=== PATIENT | male | born 1980 | race American Indian/Alaskan Native ===

== ENCOUNTER 2019-12-26 00:45 | Inpatient (IN) | payer OTHER ==
[2019-12-26] MEDS ORDERED: HYDROmorphone 1 MG/1 ML INJ IV ONE (01:10)
[2019-12-26] MEDS ORDERED: ONDANSETRON 4 MG/2 ML INJ IV ONE (01:10)
[2019-12-26] MEDS ORDERED: SODIUM CHLORIDE 0.9% 1000 ML 1,000 ML IV ONE ×2 (01:10→03:49)
--- NOTE | 2019-12-26 01:10 | Emergency Department Report ---
ED Abdominal Pain HPI - General Chief Complaint: Abdominal Pain Stated Complaint: NAUSEA/VOMITING PUI?: No Time Seen by Provider: 12/26/19 01:09 Source: EMS Mode of arrival: Stretcher Limitations: No Limitations - History of Present Illness Initial Comments: Patient is a 39-year-old male that presents emergency room with complaints of abdominal pain, nausea, vomiting, diarrhea. Patient states that he has had multiple bouts of vomiting and multiple bouts of diarrhea. Patient states he is passing bright red blood per rectum. Patient states he is also vomiting blood. Patient states his abdominal pain is a 10 out of 10. Patient states that he feels dehydrated. Patient states his symptoms are worsening. Patient states his symptoms started 24 hours ago. Patient states he ate 5 cheeseburgers last night and developed nausea and vomiting earlier this morning. Patient states that his abdominal pain is generalized. Patient states he is abdominal pain is nonradiating. Patient denies fever and chills. Patient complains of dizziness at times after vomiting. Patient states his dizziness is better with rest. Patient states his dizziness is worse with vomiting and exertion. Patient denies recent travel. Patient denies recent international travel. Patient denies exposure to the novel coronavirus. Patient denies sick contacts. Patient denies fever and chills. Patient denies cough. Patient denies coming in contact with anybody with symptoms of the novel coronavirus. MD Complaint: abdominal pain -: Sudden Location: diffuse Radiation: none Migration to: no migration Severity: severe Severity scale (0 -10): 10 Quality: stabbing Consistency: constant Improves With: rest Worsens With: eating, bowel movement, vomiting, movement Associated Symptoms: nausea, vomiting, diarrhea, hematemesis, hematochezia. denies: fever, chills, constipation, dysuria, melena - Related Data Home Medications Medication Instructions Recorded Confirmed Last Taken No Known Home Medications [No 06/15/15 06/15/15 Unknown Reported Home Medications] Allergies Allergy/AdvReac Type Severity Reaction Status Date / Time azithromycin [From Zithromax] Allergy STOMACH Verified 06/15/15 13:11 AND TONGUE FALL ASLEEP/ ANXIETY ED Review of Systems ROS: Stated complaint: NAUSEA/VOMITING Other details as noted in HPI Constitutional: denies: chills, fever Eyes: denies: eye pain, eye discharge, vision change ENT: denies: ear pain, throat pain Respiratory: denies: cough, shortness of breath, wheezing Cardiovascular: denies: chest pain, palpitations Endocrine: no symptoms reported Gastrointestinal: abdominal pain, nausea, vomiting, diarrhea, hematemesis, hematochezia Genitourinary: denies: urgency, dysuria Musculoskeletal: denies: back pain, joint swelling, arthralgia Skin: denies: rash, lesions Neurological: as per HPI. denies: headache, weakness, paresthesias Psychiatric: denies: anxiety, depression Hematological/Lymphatic: denies: easy bleeding, easy bruising ED Past Medical Hx - Past Medical History Previous Medical History?: No Additional medical history: bronchitis - Surgical History Past Surgical History?: No - Family History Family history: no significant - Social History Smoking Status: Never Smoker Substance Use Type: None - Medications Home Medications: Home Medications Medication Instructions Recorded Confirmed Last Taken Type No Known Home Medications [No 06/15/15 06/15/15 Unknown History Reported Home Medications] ED Physical Exam - General Limitations: No Limitations General appearance: alert, in no apparent distress - Head Head exam: Present: atraumatic, normocephalic - Eye Eye exam: Present: normal appearance - ENT ENT exam: Present: mucous membranes dry - Neck Neck exam: Present: normal inspection - Respiratory Respiratory exam: Present: normal lung sounds bilaterally. Absent: respiratory distress - Cardiovascular Cardiovascular Exam: Present: regular rate, normal rhythm. Absent: systolic murmur, diastolic murmur, rubs, gallop - GI/Abdominal GI/Abdominal exam: Present: soft, tenderness, normal bowel sounds. Absent: distended, guarding - Rectal Rectal exam: Present: normal rectal tone, heme (+) stool, bloody stool, normal prostate - Extremities Exam Extremities exam: Present: normal inspection - Back Exam Back exam: Present: normal inspection - Neurological Exam Neurological exam: Present: alert, oriented X3 - Psychiatric Psychiatric exam: Present: normal affect, normal mood - Skin Skin exam: Present: warm, dry, intact, normal color. Absent: rash ED Course Vital Signs 12/26/19 12/26/19 12/26/19 00:51 01:27 01:31 Temperature 97.9 F Pulse Rate 98 H 99 H 103 H Respiratory 13 13 9 L Rate Blood Pressure 111/75 Blood Pressure 93/66 [Left] O2 Sat by Pulse 100 98 97 Oximetry - Reevaluation(s) Reevaluation #1: Patient states he is feeling better. I discussed all results with patient. I discussed plan of care with patient. Patient agrees with plan of care and admission. Patient to be admitted to the hospitalist service. 12/26/19 03:51 - Consultations Consultation #1: Hospitalist consulted for admission. Hospitalist to admit patient. 12/26/19 03:50 Consultation #2: GI paged 12/26/19 03:51 I discussed the case with Dr. Paez GI. Dr. Paez recommends admission, n.p.o. after midnight and a dose of Protonix. 12/26/19 03:58 ED Medical Decision Making - Lab Data Result diagrams: 12/26/19 01:29 12/26/19 03:00 - Radiology Data Radiology results: report reviewed CT ABDOMEN AND PELVIS WITH IV CONTRAST INDICATION: Patient complains of abd pain with nausea, vomiting and diarrhea. COMPARISON: None available. TECHNIQUE: Axial CT images were obtained through the abdomen and pelvis after IV contrast. All CT scans at this location are performed using CT dose reduction for ALARA by means of automated exposure control. FINDINGS -- ABDOMEN: Lung Bases: No acute abnormality. Liver: Normal. Gallbladder: Normal. Bile Ducts: Normal. Pancreas: Normal. Spleen: Normal. Adrenals: Normal. Right Kidney and Proximal Ureter: Normal. Left Kidney and Proximal Ureter: Normal. Stomach and Bowel: Normal. Lymph Nodes: No significant adenopathy. Aorta: No significant abnormality. IVC: Normal. Additional Findings: None. FINDINGS -- PELVIS: Urinary Bladder and Distal Ureters: Normal. Reproductive Organs: No acute abnormality. Appendix: Not well identified and cannot be assessed.. Bowel: No acute abnormality. Free Fluid: None. Lymph Nodes: No significant adenopathy. Additional Findings: None. Skeletal System: No acute abnormality. IMPRESSION: Mild diffuse colitis, possibly infectious - Medical Decision Making Patient is a 39-year-old male that presents emergency room with nausea, vomiting, diarrhea, vomiting blood, bright red blood per rectum. Patient's symptoms started after eating 5 hamburgers. Patient given fluids, Dilaudid and Zofran as symptoms improved. Patient had a CT scan which shows infectious colitis. Patient was given Zosyn early in the ER visit. Patient admitted to the hospital service for further evaluation treatment. Patient had a positive guaiac and GI was consulted. GI recommendations received. - Differential Diagnosis Colitis, abdominal pain, vomiting blood, diarrhea, N/V, gastroenteritis Critical Care Time: Yes Critical care time in (mins) excluding proc time.: 35 Critical care attestation.: If time is entered above; I have spent that time in minutes in the direct care of this critically ill patient, excluding procedure time. Critical Care Time: 35 minutes ED Disposition Clinical Impression: Dizziness, Colitis, BRBPR (bright red blood per rectum) Nausea & vomiting Qualifiers: Vomiting type: unspecified Vomiting Intractability: intractable Qualified Code(s): R11.2 - Nausea with vomiting, unspecified Hematemesis Qualifiers: Nausea presence: with nausea Qualified Code(s): K92.0 - Hematemesis GI bleed Qualifiers: GI bleed type/associated pathology: unspecified gastrointestinal hemorrhage type Qualified Code(s): K92.2 - Gastrointestinal hemorrhage, unspecified Diarrhea Qualifiers: Diarrhea type: infectious Qualified Code(s): A09 - Infectious gastroenteritis and colitis, unspecified Disposition: DC-09 OP ADMIT IP TO THIS HOSP Is pt being admited?: Yes Does the pt Need Aspirin: No Condition: Critical Time of Disposition: 04:01
[2019-12-26] MEDS ORDERED: SODIUM CHLORIDE 0.9% 1000 ML IV SOLN IV ONE (01:31)
[2019-12-26] MEDS ORDERED: PIPERACIL/TAZOBACTA 4.5/NS 100 4.5 GM/100 ML VIAL IV ONE (01:32)
[2019-12-26 01:56] LABS: Basophils % (Auto) 0.3 % (0.0-1.8); Hematocrit 40.6 % (35.5-45.6); Hemoglobin 14.4 gm/dl (11.8-15.2); Lymphocytes # (Auto) 0.4 K/mm3 (1.2-5.4); Lymphocytes % (Auto) 8.2 % (13.4-35.0); Mean Corpuscular HGB Conc 36 % (32-34); Mean Corpuscular Volume 85 fl (84-94); Monocytes # (Auto) 0.6 K/mm3 (0.0-0.8); Monocytes % (Auto) 13.3 % (0.0-7.3); Platelet Count 200 K/mm3 (140-440); Red Blood Count 4.76 M/mm3 (3.65-5.03); Red Cell Distribution Width 13.2 % (13.2-15.2)
[2019-12-26 02:19] LABS: Alanine Aminotransferase 18 units/L (7-56); Albumin 3.9 g/dL (3.9-5); BUN/Creatinine Ratio 15; Bilirubin,Direct 0.2 mg/dL (0-0.2); Blood Urea Nitrogen 18 mg/dL (9-20); Calcium 8.5 mg/dL (8.4-10.2); Hemolysis Index 13
--- NOTE | 2019-12-26 03:14 | Cat Scan Report ---
CT head without contrast INDICATION : Dizziness altered mental status. TECHNIQUE: Axial imaging performed from the skull apex through the skull base without the use of con trast. All CT examinations performed at this facility utilize dose modulation, iterative reconstruct ion or weight-based dosing, when appropriate, to reduce radiation dose to as low as reasonably achiev able. COMPARISON: None FINDINGS: No acute intracranial hemorrhage or parenchymal abnormality. Ventricles are normal in si ze and appear symmetric. Soft tissues including the orbits appear normal. No acute osseous abnorm ality. Sinuses and mastoid air cells are clear. IMPRESSION: No acute abnormality. Signer Name: Prosper Nguyen MD Signed: 12/26/2019 3:09 AM Workstation Name: [id number]
--- NOTE | 2019-12-26 03:15 | Cat Scan Report ---
CT ABDOMEN AND PELVIS WITH IV CONTRAST INDICATION: Patient complains of abd pain with nausea, vomiting and diarrhea. COMPARISON: None available. TECHNIQUE: Axial CT images were obtained through the abdomen and pelvis after IV contrast. All CT scans at this location are performed using CT dose reduction for ALARA by means of automated exposure control. FINDINGS -- ABDOMEN: Lung Bases: No acute abnormality. Liver: Normal. Gallbladder: Normal. Bile Ducts: Normal. Pancreas: Normal. Spleen: Normal. Adrenals: Normal. Right Kidney and Proximal Ureter: Normal. Left Kidney and Proximal Ureter: Normal. Stomach and Bowel: Normal. Lymph Nodes: No significant adenopathy. Aorta: No significant abnormality. IVC: Normal. Additional Findings: None. FINDINGS -- PELVIS: Urinary Bladder and Distal Ureters: Normal. Reproductive Organs: No acute abnormality. Appendix: Not well identified and cannot be assessed.. Bowel: No acute abnormality. Free Fluid: None. Lymph Nodes: No significant adenopathy. Additional Findings: None. Skeletal System: No acute abnormality. IMPRESSION: Mild diffuse colitis, possibly infectious Signer Name: Propser Nguyen MD Signed: 12/26/2019 3:11 AM Workstation Name: [id number]
[2019-12-26 03:31] LABS: Alanine Aminotransferase 16 units/L (7-56); Albumin 3.8 g/dL (3.9-5); BUN/Creatinine Ratio 15; Blood Urea Nitrogen 17 mg/dL (9-20); Calcium 7.8 mg/dL (8.4-10.2); Hemolysis Index 5
[2019-12-26] MEDS ORDERED: PANTOPRAZOLE 40 MG INJ IV ONE (03:58)
[2019-12-26 04:34] LABS: Bacteria,Urine 1+ /HPF (Negative); Bilirubin,Urine NEG (Negative); Blood,Urine SM (Negative); Color,Urine Straw (Yellow); Protein,Urine <15 mg/dL mg/dL (Negative); Urobilinogen,Urine < 2.0 mg/dL (<2.0)
[2019-12-26] MEDS ORDERED: MORPHINE 2 MG/1 ML INJ IV PRN (04:51)
[2019-12-26] MEDS ORDERED: ACETAMINOPHEN 325 MG TAB PO PRN (04:51)
--- NOTE | 2019-12-26 05:02 | History and Physical Report ---
History of Present Illness Date of examination: 12/26/19 Date of admission: 12/26/19 04:02 Chief complaint: Nausea, vomiting, diarrhea and abdominal pain History of present illness: Patient is a 39-year-old male with no known past medical conditions and not on any medication presents with complaints of recurrent vomiting, diarrhea, generalized abdominal pain and body aches since last night. He also complains of feeling hot and cold, fever and chills. States that he had at least 10 episodes of emesis and 10-13 episodes of loose bowel movements. Symptoms st arted after he ate about 5 cheeseburgers and then went to sleep and woke up after an hour with worsening abdominal pain followed by vomiting and diarrhea. CT of the abdomen revealed diffuse colitis and patient is being admitted for further management Patient complains of dizziness at times after vomiting. Patient states his dizziness is better with rest. Patient states his dizziness is worse with vomiting and exertion. Patient denies recent travel. Patient denies exposure to the novel coronavirus Past History Past Medical History: No medical history Past Surgical History: Other (Left foot surgery) Social history: no significant social history. denies: smoking, alcohol abuse Family history: hypertension (in mother) Medications and Allergies Allergies Allergy/AdvReac Type Severity Reaction Status Date / Time azithromycin [From Zithromax] Allergy STOMACH Verified 06/15/15 13:11 AND TONGUE FALL ASLEEP/ ANXIETY Home Medications Medication Instructions Recorded Confirmed Last Taken Type No Known Home Medications [No 06/15/15 06/15/15 Unknown History Reported Home Medications] Active Meds: Active Medications Acetaminophen (Tylenol) 650 mg PO Q4H PRN PRN Reason: Pain MILD(1-3)/Fever >100.5/VICK Sodium Chloride (Nacl 0.9% 1000 Ml) 1,000 mls @ 125 mls/hr IV DIRECT PRATIK Metronidazole (Flagyl 500 Mg/100 Ml) 500 mg in 100 mls @ 100 mls/hr IV Q8HR PRATIK; Protocol Levofloxacin/Dextrose (Levaquin 500mg/100ml) 500 mg in 100 mls @ 100 mls/hr IV Q24HR PRATIK; Protocol Morphine Sulfate (Morphine) 2 mg IV Q4H PRN PRN Reason: Pain, Moderate (4-6) Ondansetron HCl (Zofran) 4 mg IV Q8H PRN PRN Reason: Nausea And Vomiting Pantoprazole Sodium (Protonix) 40 mg IV QDAY PRATIK Sodium Chloride (Sodium Chloride Flush Syringe 10 Ml) 10 ml IV BID PRATIK Sodium Chloride (Sodium Chloride Flush Syringe 10 Ml) 10 ml IV PRN PRN PRN Reason: LINE FLUSH Review of Systems Constitutional: fever, chills, weakness, no weight loss, no weight gain Ears, nose, mouth and throat: no ear pain, no hoarseness, no headache, no vertigo Cardiovascular: no chest pain, no orthopnea, no palpitations, no syncope, no high blood pressure Respiratory: no cough Gastrointestinal: abdominal pain, nausea, vomiting, diarrhea, hematemesis, melena, hematochezia Genitourinary Male: no dysuria, no urinary frequency Rectal: bleeding, no pain Musculoskeletal: no neck pain Integumentary: rash Neurological: no seizures, no syncope, no vertigo Psychiatric: no anxiety, no depression Exam - Constitutional Vitals: Temp Pulse Resp BP Pulse Ox 97.9 F 103 H 9 L 111/75 97 12/26/19 00:51 12/26/19 01:31 12/26/19 01:31 12/26/19 01:31 12/26/19 01:31 General appearance: Present: mild distress - EENT Eyes: Present: PERRL, EOM intact ENT: hearing intact, clear oral mucosa - Neck Neck: Present: supple, normal ROM. Absent: masses or JVD - Respiratory Respiratory effort: normal - Cardiovascular Rhythm: regular Heart Sounds: Present: S1 & S2 - Extremities Extremities: No edema Peripheral Pulses: within normal limits - Abdominal General gastrointestinal: Present: soft, tender (No guarding or rigidity), non- distended Male genitourinary: Present: deferred - Rectal Rectal Exam: deferred - Integumentary Integumentary: Present: clear, warm - Musculoskeletal Musculoskeletal: strength equal bilaterally - Psychiatric Psychiatric: appropriate mood/affect HEART Score - HEART Score Troponin: WBC 4.8 K/mm3 (4.5-11.0) 12/26/19 01:29 RBC 4.76 M/mm3 (3.65-5.03) 12/26/19 01:29 Hgb 14.4 gm/dl (11.8-15.2) 12/26/19 01:29 Hct 40.6 % (35.5-45.6) 12/26/19: MCV 85 fl (84-94) 12/26/19 01: MCH 30 pg (28-32) 12/26/19 01: MCHC 36 % (32-34) H 12/26/19 01: RDW 13.2 % (13.2-15.2) 12/26/19 01:29 Plt Count 200 K/mm3 (140-440) 12/26/19 01:29 Lymph % (Auto) 8.2 % (13.4-35.0) L 12/26/19 01: [place] % (Auto) 13.3 % (0.0-7.3) H 12/26/19 01: Eos % (Auto) 0.0 % (0.0-4.3) 12/26/19 01: Baso % (Auto) 0.3 % (0.0-1.8) 12/26/19 01: Lymph # (Auto) 0.4 K/mm3 (1.2-5.4) L 12/26/19 01: [place] # (Auto) 0.6 K/mm3 (0.0-0.8) 12/26/19 01: Eos # (Auto) 0.0 K/mm3 (0.0-0.4) 12/26/19 01: Baso # (Auto) 0.0 K/mm3 (0.0-0.1) 12/26/19 01: Seg Neutrophils % 78.2 % (40.0-70.0) H 12/26/19 01: Seg Neutrophils # 3.7 K/mm3 (1.8-7.7) 12/26/19 01:29 Sodium 132 mmol/L (137-145) L 12/26/19 03:00 Potassium 3.6 mmol/L (3.6-5.0) 12/26/19 03:00 Chloride 100.0 mmol/L (98-107) 12/26/19 03:00 Carbon Dioxide 18 mmol/L (22-30) L 12/26/19 03:00 Anion Gap 18 mmol/L 12/26/19 03:00 BUN 17 mg/dL (9-20) 12/26/19 03:00 Creatinine 1.1 mg/dL (0.8-1.3) 12/26/19 03:00 Estimated GFR > 60 ml/min 12/26/19 03:00 BUN/Creatinine Ratio 15 % 12/26/19 03:00 Glucose 141 mg/dL (75-100) H 12/26/19 03:00 Lactic Acid 1.70 mmol/L (0.7-2.0) 12/26/19 03:00 Calcium 7.8 mg/dL (8.4-10.2) L 12/26/19 03:00 Total Bilirubin 0.60 mg/dL (0.1-1.2) 12/26/19 03:00 Direct Bilirubin 0.2 mg/dL (0-0.2) 12/26/19 01:29 Indirect Bilirubin 0.7 mg/dL 12/26/19 01:29 AST 13 units/L (5-40) 12/26/19 03:00 ALT 16 units/L (7-56) 12/26/19 03:00 Alkaline Phosphatase 74 units/L (35-129) 12/26/19 03:00 Total Protein 6.2 g/dL (6.3-8.2) L 12/26/19 03:00 Albumin 3.8 g/dL (3.9-5) L 12/26/19 03:00 Albumin/Globulin Ratio 1.6 % 12/26/19 03:00 Lipase 16 units/L (13-60) 12/26/19 01:29 Urine Color Straw (Yellow) 12/26/19 03:19 Urine Turbidity Clear (Clear) 12/26/19 03:19 Urine pH 6.0 (5.0-7.0) 12/26/19 03:19 Ur Specific [place] 1.005 (1.003-1.030) 12/26/19 03:19 Urine Protein <15 mg/dl mg/dL (Negative) 12/26/19 03:19 Urine Glucose (UA) Neg mg/dL (Negative) 12/26/19 03:19 Urine Ketones Tr mg/dL (Negative) 12/26/19 03:19 Urine Blood Sm (Negative) 12/26/19 03:19 Urine Nitrite Neg (Negative) 12/26/19 03:19 Urine Bilirubin Neg (Negative) 12/26/19 03:19 Urine Urobilinogen < 2.0 mg/dL (<2.0) 12/26/19 03:19 Ur Leukocyte Esterase Neg (Negative) 12/26/19 03:19 Urine WBC (Auto) 1.0 /HPF (0.0-6.0) 12/26/19 03:19 Urine RBC (Auto) 0.0 /HPF (0.0-6.0) 12/26/19 03:19 Urine Bacteria (Auto) 1+ /HPF (Negative) 12/26/19 03:19 Results - Labs CBC & Chem 7: 12/26/19 01:29 12/26/19 03:00 Labs: Abnormal lab results 12/26/19 12/26/19 12/26/19 Range/Units 01:29 01:29 03:00 MCHC 36 H (32-34) % Lymph % (Auto) 8.2 L (13.4-35.0) % [place] % (Auto) 13.3 H (0.0-7.3) % Lymph # (Auto) 0.4 L (1.2-5.4) K/mm3 Seg Neutrophils % 78.2 H (40.0-70.0) % Sodium 133 L 132 L (137-145) mmol/L Potassium 3.4 L (3.6-5.0) mmol/L Carbon Dioxide 18 L 18 L (22-30) mmol/L Glucose 147 H 141 H (75-100) mg/dL Calcium 7.8 L (8.4-10.2) mg/dL Total Protein 6.2 L (6.3-8.2) g/dL Albumin 3.8 L (3.9-5) g/dL Assessment and Plan - Patient Problems (1) Hyponatremia Current Visit: Yes Status: Acute Plan to address problem: Mild Likely secondary to diarrhea Start on IV fluids with normal saline Monitor electrolytes No need for further hyponatremia work-up (2) Metabolic acidosis Current Visit: Yes Status: Acute Plan to address problem: Secondary to diarrhea Monitor labs IV fluids (3) Hyperglycemia Current Visit: Yes Status: Acute Plan to address problem: Patient denies history of diabetes diabetes Check A1c (4) Colitis Current Visit: Yes Status: Acute Plan to address problem: CT of the abdomen and pelvis results reviewed and it shows diffuse colitis Unclear etiology Rule out infectious versus food poisoning Symptoms started about an hour after he ate 5 cheeseburgers from [employer] Check stool for C. difficile Blood and stool cultures N.p.o. IV fluids Empiric IV antibiotics with Levaquin and Flagyl GI consulted by ED (5) Diarrhea Current Visit: Yes Status: Acute Qualifiers: Diarrhea type: infectious Qualified Code(s): A09 - Infectious gastroenteritis and colitis, unspecified (6) GI bleed Current Visit: Yes Status: Acute Qualifiers: GI bleed type/associated pathology: unspecified gastrointestinal hemorrhage type Qualified Code(s): K92.2 - Gastrointestinal hemorrhage, unspecified (7) Nausea & vomiting Current Visit: Yes Status: Acute Qualifiers: Vomiting type: unspecified Vomiting Intractability: intractable Qualified Code(s): R11.2 - Nausea with vomiting, unspecified
[2019-12-26] MEDS: ONDANSETRON 4 MG/2 ML INJ IV PRN ×2 (07:37→15:47)
[2019-12-26] MEDS: SODIUM CHLORIDE 0.9% 1000 ML 1,000 ML IV SCH (07:40)
[2019-12-26] MEDS: metroNIDAZOLE/NS 500 MG/100 ML 500 MG/100 ML BAG IV SCH ×3 (07:40→21:50)
--- NOTE | 2019-12-26 09:21 | Event Note ---
This is a 39 year old male with no medical history except of prior surgeries on his left foot from trauma several years ago who presented with n/v, hematemesis, diarrhea, generalized abd pain, generlaized body aches and hematochezia episodes at home CT of the abdomen revealed diffuse colitis and was started on levaquin, flagyl, IVF, made npo and a consult was placed to GI. Today on exam he states he is pain but is relatively clam with neutral facial expressions, normocephalic, atraumatic head, PERRL, hearing intact, B lung CTA without distress, his abd is stated to be tender but no tenderness noted on palpation, guarding or rigidity with hypoactive bowel sounds, voiding into a urinal, with no skin lesions noted. Patient states he is allergic to morphine however he states he can take Dilaudid and oxycodone without any problems. Morphine is said to cause tingling in his mouth and hypersalavation. He states " you can give me morphine but you will regret it, [facility] has my records, does my family need to come up here because my pain is not being treated". He also expressed dissatisfaction with the nurse and perceived delay in care. I changed his pain medication to 0.5 mg Dilaudid q 4 hours for 1 day. Patient also stated he wanted phenergan for his nausea instead of zofran but when presented with the [place] option since the patient is NPO and those are the routes which are displayed when I try to order, he declined the change. On admit he had hyponatreumia of 133, hypokalemia of 3.4, and his Cr was 1.2 (unknown baseline). Today he has hyponaturemia of 132, his K is 3.6, and Cr is 1.1. His LA also trended up to 2.2 from 1.7 but repeat is 2.0. We will continue to monitor and await GI input.
[2019-12-26] MEDS ORDERED: NALOXONE 0.4 MG/1 ML INJ IV PRN (09:30)
[2019-12-26] MEDS: HYDROmorphone 1 MG/1 ML INJ IV PRN ×2 (09:34→15:47)
[2019-12-26] MEDS: PANTOPRAZOLE 40 MG INJ IV SCH (09:35)
--- NOTE | 2019-12-26 21:11 | Consultation ---
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 He had eaten 5 [employer] cheeseburgers at 8PM on 12/23. He has had chills as well, and noted BRB mixed in emesis, as well as mixed with yellow-brown liquid stool. Pt usu has a BM 1-2x/d, no change. Had prior similar symptoms years ago with food poisoning. No weight loss. Meds reviewed. Past History Past Medical History: No medical history Past Surgical History: Other (Left foot surgery) Social history: no significant social history. denies: smoking, alcohol abuse Family history: hypertension (in mother) Medications and Allergies Allergies Allergy/AdvReac Type Severity Reaction Status Date / Time azithromycin [From Zithromax] Allergy STOMACH Verified 06/15/15 13:11 AND TONGUE FALL ASLEEP/ ANXIETY Home Medications Medication Instructions Recorded Confirmed Last Taken Type No Known Home Medications [No 06/15/15 06/15/15 Unknown History Reported Home Medications] Active Meds: Active Medications Acetaminophen (Tylenol) 650 mg PO Q4H PRN PRN Reason: Pain MILD(1-3)/Fever >100.5/VICK Hydromorphone HCl (Dilaudid) 0.5 mg IV Q6H PRN PRN Reason: Pain , Severe (7-10) Stop: 12/27/19 09:59 Last Admin: 12/26/19 15:47 Dose: 0.5 mg Documented by: Sodium Chloride (Nacl 0.9% 1000 Ml) 1,000 mls @ 125 mls/hr IV DIRECT PRATIK Last Admin: 12/26/19 07:40 Dose: 125 mls/hr Documented by: Metronidazole (Flagyl 500 Mg/100 Ml) 500 mg in 100 mls @ 100 mls/hr IV Q8HR PRATIK; Protocol Last Admin: 12/26/19 14:15 Dose: 100 mls/hr Documented by: Levofloxacin/Dextrose (Levaquin 500mg/100ml) 500 mg in 100 mls @ 100 mls/hr IV Q24HR PRATIK; Protocol Last Admin: 12/26/19 09:35 Dose: 100 mls/hr Documented by: Naloxone HCl (Naloxone) 0.1 mg IV Q2MIN PRN PRN Reason: Res Rate </= 8 or 02 SAT < 92% Ondansetron HCl (Zofran) 4 mg IV Q8H PRN PRN Reason: Nausea And Vomiting Last Admin: 12/26/19 15:47 Dose: 4 mg Documented by: Oxycodone/Acetaminophen (Percocet 5/325) 1 tab PO Q6H PRN PRN Reason: Pain, Moderate (4-6) Pantoprazole Sodium (Protonix) 40 mg IV QDAY [facility] Last Admin: 12/26/19 09:35 Dose: 40 mg Documented by: Sodium Chloride (Sodium Chloride Flush Syringe 10 Ml) 10 ml IV BID [facility] Last Admin: 12/26/19 09:41 Dose: Not Given Documented by: Sodium Chloride (Sodium Chloride Flush Syringe 10 Ml) 10 ml IV PRN PRN PRN Reason: LINE FLUSH Review of Systems All systems: negative (as per HPI) Exam - Constitutional Vitals: Temp Pulse Resp BP Pulse Ox 99.2 F 94 H 18 114/56 96 12/26/19 19:31 12/26/19 19:31 12/26/19 19:31 12/26/19 19:31 12/26/19 19:31 General appearance: Present: mild distress - EENT Eyes: Present: PERRL, EOM intact ENT: hearing intact - Respiratory Respiratory effort: normal Respiratory: bilateral: CTA - Cardiovascular Rhythm: regular Heart Sounds: Present: S1 & S2 - Abdominal General gastrointestinal: Present: soft, tender (mild, diffuse) Results - Labs CBC & Chem 7: 12/26/19 01:29 12/26/19 03:00 Labs: Abnormal lab results 12/26/19 12/26/19 12/26/19 Range/Units 01:29 01:29 03:00 MCHC 36 H (32-34) % Lymph % (Auto) 8.2 L (13.4-35.0) % [place] % (Auto) 13.3 H (0.0-7.3) % Lymph # (Auto) 0.4 L (1.2-5.4) K/mm3 Seg Neutrophils % 78.2 H (40.0-70.0) % Sodium 133 L 132 L (137-145) mmol/L Potassium 3.4 L (3.6-5.0) mmol/L Carbon Dioxide 18 L 18 L (22-30) mmol/L Glucose 147 H 141 H (75-100) mg/dL Lactic Acid (0.7-2.0) mmol/L Calcium 7.8 L (8.4-10.2) mg/dL Total Protein 6.2 L (6.3-8.2) g/dL Albumin 3.8 L (3.9-5) g/dL 12/26/19 Range/Units 07:07 MCHC (32-34) % Lymph % (Auto) (13.4-35.0) % [place] % (Auto) (0.0-7.3) % Lymph # (Auto) (1.2-5.4) K/mm3 Seg Neutrophils % (40.0-70.0) % Sodium (137-145) mmol/L Potassium (3.6-5.0) mmol/L Carbon Dioxide (22-30) mmol/L Glucose (75-100) mg/dL Lactic Acid 2.20 H* (0.7-2.0) mmol/L Calcium (8.4-10.2) mg/dL Total Protein (6.3-8.2) g/dL Albumin (3.9-5) g/dL Assessment and Plan 1. N/V/D - most c/w infectious process. - supportive care, IVFs - empiric abx - get stool studies
[2019-12-27] MEDS: HYDROmorphone 1 MG/1 ML INJ IV PRN (04:35)
[2019-12-27] MEDS: metroNIDAZOLE/NS 500 MG/100 ML 500 MG/100 ML BAG IV SCH ×3 (05:39→22:28)
[2019-12-27 06:40] LABS: Basophils % (Auto) 0.1 % (0.0-1.8); Eosinophils % (Auto) 0.3 % (0.0-4.3); Hematocrit 37.4 % (35.5-45.6); Lymphocytes # (Auto) 1.2 K/mm3 (1.2-5.4); Lymphocytes % (Auto) 16.5 % (13.4-35.0); Mean Corpuscular HGB Conc 35 % (32-34); Mean Corpuscular Volume 86 fl (84-94); Monocytes # (Auto) 0.7 K/mm3 (0.0-0.8); Monocytes % (Auto) 10.1 % (0.0-7.3); Platelet Count 189 K/mm3 (140-440); Red Blood Count 4.33 M/mm3 (3.65-5.03); Red Cell Distribution Width 13.4 % (13.2-15.2)
[2019-12-27 06:46] LABS: BUN/Creatinine Ratio 9; Blood Urea Nitrogen 9 mg/dL (9-20); Calcium 8.3 mg/dL (8.4-10.2); Hemolysis Index 13
[2019-12-27] MEDS: PANTOPRAZOLE 40 MG INJ IV SCH ×2 (08:43→10:03)
[2019-12-27] MEDS: oxyCODONE /ACETAMINOPHEN 5-325MG TAB PO PRN ×2 (10:08→22:31)
[2019-12-27] MEDS: ONDANSETRON 4 MG/2 ML INJ IV PRN (10:13)
--- NOTE | 2019-12-27 14:39 | Progress Note ---
Assessment and Plan 1. N/V/D - Improving. Most c/w infectious process, possibly related to food ingestion. Stool positive for WBC, cultures pending. - supportive care, IVFs - empiric abx - F/u stool studies - can give Levsin SL for pain/cramps, and cholestyramine for diarrhea Subjective Date of service: 12/27/19 Interval history: Pt has ongoing diarrhea, with cramping and vasovagal symptoms. Significantly improved and was able to sleep. Objective - Constitutional Vitals: Vital Signs - 12hr 12/27/19 08:32 Temperature 98.5 F Pulse Rate 78 Respiratory 19 Rate Blood Pressure 116/73 [Left] O2 Sat by Pulse 98 Oximetry General appearance: Present: no acute distress - EENT Eyes: PERRL, EOM intact ENT: hearing intact - Respiratory Respiratory effort: normal - Gastrointestinal General gastrointestinal: Present: soft, tender (Mild) - Labs CBC & Chem 7: 12/27/19 05:57 12/27/19 05:57 Labs: Abnormal lab results 12/27/19 12/27/19 Range/Units 05:57 05:57 MCHC 35 H (32-34) % [place] % (Auto) 10.1 H (0.0-7.3) % Seg Neutrophils % 73.0 H (40.0-70.0) % Calcium 8.3 L (8.4-10.2) mg/dL Medications & Allergies - Medications Allergies/Adverse Reactions: Allergies azithromycin [From Zithromax] Allergy (Verified 06/15/15 13:11) STOMACH AND TONGUE FALL ASLEEP/ ANXIETY Home Medications: Home Medications Medication Instructions Recorded Confirmed Last Taken Type No Known Home Medications [No 06/15/15 06/15/15 Unknown History Reported Home Medications] Active Medications: Generic Name Dose Route Start Last Admin Trade Name Freq PRN Reason Stop Dose Admin Acetaminophen 650 mg 12/26/19 04:51 Tylenol PO Q4H PRN Pain MILD(1-3)/Fever >100.5/VICK Sodium Chloride 1,000 mls @ 125 mls/hr 12/26/19 05:00 12/26/19 07:40 Nacl 0.9% 1000 Ml IV 125 mls/hr DIRECT PRATIK Administration Metronidazole 500 mg in 100 mls @ 100 mls/hr 12/26/19 06:00 12/27/19 13:44 Flagyl 500 Mg/100 Ml IV 100 mls/hr Q8HR PRATIK Administration Protocol Levofloxacin/Dextrose 500 mg in 100 mls @ 100 mls/hr 12/26/19 10:00 12/27/19 10:02 Levaquin 500mg/100ml IV 100 mls/hr Q24HR PRATIK Administration Protocol Naloxone HCl 0.1 mg 12/26/19 09:30 Naloxone IV Q2MIN PRN Res Rate </= 8 or 02 SAT < 92% Ondansetron HCl 4 mg 12/26/19 04:51 12/27/19 10:13 Zofran IV 4 mg Q8H PRN Administration Nausea And Vomiting Oxycodone/Acetaminophen 1 tab 12/26/19 10:00 12/27/19 10:08 Percocet 5/325 PO 1 tab Q6H PRN Administration Pain, Moderate (4-6) Pantoprazole Sodium 40 mg 12/26/19 10:00 12/27/19 10:03 Protonix IV Not Given QDAY PRATIK Sodium Chloride 10 ml 12/26/19 10:00 12/27/19 10:03 Sodium Chloride Flush Syringe 10 Ml IV Not Given BID PRATIK Sodium Chloride 10 ml 12/26/19 04:51 Sodium Chloride Flush Syringe 10 Ml IV PRN PRN LINE FLUSH
--- NOTE | 2019-12-27 14:52 | Progress Note ---
Assessment and Plan - Patient Problems (1) Colitis Current Visit: Yes Status: Acute Plan to address problem: Presented with diarrhea, nausea and vomiting 12/25 CT of the abdomen revealed diffuse colitis GI consulted Antibiotic therapy N.p.o. for now 12/25 stool studies pending but show WBCs Questran and Levbid started for symptom relief (2) Diarrhea Current Visit: Yes Status: Acute Qualifiers: Diarrhea type: infectious Qualified Code(s): A09 - Infectious gastroenteritis and colitis, unspecified Plan to address problem: Supportive care 12/25 C. difficile negative 12/25 stool cultures pending but shows WBC Question and Levbid as needed (3) Nausea & vomiting Current Visit: Yes Status: Acute Qualifiers: Vomiting type: unspecified Vomiting Intractability: intractable Qualified Code(s): R11.2 - Nausea with vomiting, unspecified Plan to address problem: As needed antiemetics Supportive care (4) DVT prophylaxis Current Visit: Yes Status: Acute Plan to address problem: SCDs to bilateral lower extremities while in bed Heparin subcu History Interval history: This is a 39 year old male with no medical history except of prior surgeries on his left foot from trauma several years ago who presented with n/v, hematemesis, diarrhea, generalized abd pain, generlaized body aches and hematochezia episodes at home CT of the abdomen revealed diffuse colitis and was started on levaquin, flagyl, IVF, made npo and a consult was placed to GI. On admit he had hyponatreumia of 133, hypokalemia of 3.4, and his Cr was 1.2 (unknown baseline). Today he has hyponaturemia of 132, his K is 3.6, and Cr is 1.1. His LA also trended up to 2.2 from 1.7 but repeat is 2.0. Yesterday the patient was given IV Dilaudid for 1 day per his request and declined [place] Phenergan. Today patient is complaining of scheduled Percocet which he took on an empty stomach however explained to the patient that the Percocet is as needed and he has the right to refuse any medical treatments. Dr. Law started the patient on Levbid and Questran to help with his diarrhea. Patient's electrolyte imbalances have been corrected. Hospitalist Physical - Constitutional Vitals: Temp Pulse Resp BP Pulse Ox 98.5 F 78 19 116/73 98 12/27/19 08:32 12/27/19 08:32 12/27/19 08:32 12/27/19 08:32 12/27/19 08:32 General appearance: Present: no acute distress - EENT Eyes: Present: PERRL, EOM intact ENT: hearing intact, clear oral mucosa - Neck Neck: Present: supple, normal ROM - Respiratory Respiratory effort: normal Respiratory: bilateral: CTA - Cardiovascular Rhythm: regular Heart Sounds: Present: S1 & S2. Absent: systolic murmur, diastolic murmur - Extremities Extremities: no ischemia, pulses intact, pulses symmetrical, No edema, normal temperature, normal color, Full ROM Peripheral Pulses: within normal limits - Abdominal General gastrointestinal: soft, tender, non-distended, normal bowel sounds - Integumentary Integumentary: Present: warm, dry - Psychiatric Psychiatric: agitated - Neurologic Neurologic: CNII-XII intact, no focal deficits, moves all extremities Results - Labs CBC & Chem 7: 12/27/19 05:57 12/27/19 05:57 Labs: Laboratory Last Values WBC 7.2 K/mm3 (4.5-11.0) 12/27/19 05:57 RBC 4.33 M/mm3 (3.65-5.03) 12/27/19 05:57 Hgb 13.0 gm/dl (11.8-15.2) 12/27/19 05:57 Hct 37.4 % (35.5-45.6) 12/27/19 05:57 MCV 86 fl (84-94) 12/27/19 05:57 MCH 30 pg (28-32) 12/27/19 05:57 MCHC 35 % (32-34) H 12/27/19 05:57 RDW 13.4 % (13.2-15.2) 12/27/19 05:57 Plt Count 189 K/mm3 (140-440) 12/27/19 05:57 Lymph % (Auto) 16.5 % (13.4-35.0) 12/27/19 05:57 [place] % (Auto) 10.1 % (0.0-7.3) H 12/27/19 05:57 Eos % (Auto) 0.3 % (0.0-4.3) 12/27/19 05:57 Baso % (Auto) 0.1 % (0.0-1.8) 12/27/19 05:57 Lymph # (Auto) 1.2 K/mm3 (1.2-5.4) 12/27/19 05:57 [place] # (Auto) 0.7 K/mm3 (0.0-0.8) 12/27/19 05:57 Eos # (Auto) 0.0 K/mm3 (0.0-0.4) 12/27/19 05:57 Baso # (Auto) 0.0 K/mm3 (0.0-0.1) 12/27/19 05:57 Seg Neutrophils % 73.0 % (40.0-70.0) H 12/27/19 05:57 Seg Neutrophils # 5.3 K/mm3 (1.8-7.7) 12/27/19 05:57 Sodium 139 mmol/L (137-145) D 12/27/19 05:57 Potassium 3.9 mmol/L (3.6-5.0) 12/27/19 05:57 Chloride 104.0 mmol/L (98-107) 12/27/19 05:57 Carbon Dioxide 23 mmol/L (22-30) 12/27/19 05:57 Anion Gap 16 mmol/L 12/27/19 05:57 BUN 9 mg/dL (9-20) 12/27/19 05:57 Creatinine 1.0 mg/dL (0.8-1.3) 12/27/19 05:57 Estimated GFR > 60 ml/min 12/27/19 05:57 BUN/Creatinine Ratio 9 % 12/27/19 05:57 Glucose 96 mg/dL (75-100) 12/27/19 05:57 Lactic Acid 1.40 mmol/L (0.7-2.0) 12/26/19 13:20 Calcium 8.3 mg/dL (8.4-10.2) L 12/27/19 05:57 Total Bilirubin 0.60 mg/dL (0.1-1.2) 12/26/19 03:00 Direct Bilirubin 0.2 mg/dL (0-0.2) 12/26/19 01:29 Indirect Bilirubin 0.7 mg/dL 12/26/19 01:29 AST 13 units/L (5-40) 12/26/19 03:00 ALT 16 units/L (7-56) 12/26/19 03:00 Alkaline Phosphatase 74 units/L (35-129) 12/26/19 03:00 Total Protein 6.2 g/dL (6.3-8.2) L 12/26/19 03:00 Albumin 3.8 g/dL (3.9-5) L 12/26/19 03:00 Albumin/Globulin Ratio 1.6 % 12/26/19 03:00 Lipase 16 units/L (13-60) 12/26/19 01:29 Urine Color Straw (Yellow) 12/26/19 03:19 Urine Turbidity Clear (Clear) 12/26/19 03:19 Urine pH 6.0 (5.0-7.0) 12/26/19 03:19 Ur Specific [place] 1.005 (1.003-1.030) 12/26/19 03:19 Urine Protein <15 mg/dl mg/dL (Negative) 12/26/19 03:19 Urine Glucose (UA) Neg mg/dL (Negative) 12/26/19 03:19 Urine Ketones Tr mg/dL (Negative) 12/26/19 03:19 Urine Blood Sm (Negative) 12/26/19 03:19 Urine Nitrite Neg (Negative) 12/26/19 03:19 Urine Bilirubin Neg (Negative) 12/26/19 03:19 Urine Urobilinogen < 2.0 mg/dL (<2.0) 12/26/19 03:19 Ur Leukocyte Esterase Neg (Negative) 12/26/19 03:19 Urine WBC (Auto) 1.0 /HPF (0.0-6.0) 12/26/19 03:19 Urine RBC (Auto) 0.0 /HPF (0.0-6.0) 12/26/19 03:19 Urine Bacteria (Auto) 1+ /HPF (Negative) 12/26/19 03:19 C. difficile Tox (PCR) Negative (Negative) 12/26/19 03:19 Microbiology: Microbiology 12/26/19 Unknown Urine,Clean Catch Urine Culture - Preliminary NO GROWTH AFTER 24 HOURS 12/26/19 02:53 Peripheral/Venous Blood Culture - Preliminary NO GROWTH AFTER 24 HOURS 12/26/19 03:00 Peripheral/Venous Blood Culture - Preliminary NO GROWTH AFTER 24 HOURS 12/27/19 00:26 Stool Stool for WBCs - Final Sorto/IV: Voiding Method Toilet IV Catheter Type [Right Peripheral IV Antecubital] Active Medications - Current Medications Current Medications: Generic Name Dose Route Start Last Admin Trade Name Freq PRN Reason Stop Dose Admin Acetaminophen 650 mg 12/26/19 04:51 Tylenol PO Q4H PRN Pain MILD(1-3)/Fever >100.5/VICK Cholestyramine Resin 4 gm 12/27/19 15:00 Questran PO QDAY PRATIK Hyoscyamine 0.125 mg 12/27/19 14:39 Levsin Sl SL Q4H PRN Spasms Sodium Chloride 1,000 mls @ 125 mls/hr 12/26/19 05:00 12/26/19 07:40 Nacl 0.9% 1000 Ml IV 125 mls/hr DIRECT PRATIK Administration Metronidazole 500 mg in 100 mls @ 100 mls/hr 12/26/19 06:00 12/27/19 13:44 Flagyl 500 Mg/100 Ml IV 100 mls/hr Q8HR PRATIK Administration Protocol Levofloxacin/Dextrose 500 mg in 100 mls @ 100 mls/hr 12/26/19 10:00 12/27/19 10:02 Levaquin 500mg/100ml IV 100 mls/hr Q24HR PRATIK Administration Protocol Naloxone HCl 0.1 mg 12/26/19 09:30 Naloxone IV Q2MIN PRN Res Rate </= 8 or 02 SAT < 92% Ondansetron HCl 4 mg 12/26/19 04:51 12/27/19 10:13 Zofran IV 4 mg Q8H PRN Administration Nausea And Vomiting Oxycodone/Acetaminophen 1 tab 12/26/19 10:00 12/27/19 10:08 Percocet 5/325 PO 1 tab Q6H PRN Administration Pain, Moderate (4-6) Pantoprazole Sodium 40 mg 12/26/19 10:00 12/27/19 10:03 Protonix IV Not Given QDAY PRATIK Sodium Chloride 10 ml 12/26/19 10:00 12/27/19 10:03 Sodium Chloride Flush Syringe 10 Ml IV Not Given BID PRATIK Sodium Chloride 10 ml 12/26/19 04:51 Sodium Chloride Flush Syringe 10 Ml IV PRN PRN LINE FLUSH
[2019-12-27] MEDS: CHOLESTYRAMINE (WITH SUGAR) 4 GM PACKET PO SCH (15:59)
[2019-12-27] MEDS: HYOSCYAMINE SUBL 0.125 MG TAB SL PRN ×2 (18:00→22:27)
[2019-12-27] MEDS: HEPARIN 5,000 UNIT/1 ML VIAL SUB-Q SCH (22:29)
[2019-12-27] MEDS: SODIUM CHLORIDE 0.9% 1000 ML 1,000 ML IV SCH (22:46)
[2019-12-28] MEDS: HYOSCYAMINE SUBL 0.125 MG TAB SL PRN ×3 (05:44→20:20)
[2019-12-28] MEDS: ONDANSETRON 4 MG/2 ML INJ IV PRN ×3 (05:46→23:09)
[2019-12-28] MEDS: metroNIDAZOLE/NS 500 MG/100 ML 500 MG/100 ML BAG IV SCH ×2 (05:48→14:22)
[2019-12-28] MEDS: SODIUM CHLORIDE 0.9% 1000 ML 1,000 ML IV SCH (05:50)
[2019-12-28] MEDS: HEPARIN 5,000 UNIT/1 ML VIAL SUB-Q SCH ×2 (11:16→23:12)
[2019-12-28] MEDS: PANTOPRAZOLE 40 MG INJ IV SCH (11:16)
[2019-12-28] MEDS: CHOLESTYRAMINE (WITH SUGAR) 4 GM PACKET PO SCH (11:17)
--- NOTE | 2019-12-28 16:03 | Progress Note ---
Assessment and Plan Assessment and plan: --Acute colitis Current Visit: Yes Status: Acute Plan to address problem: Patient had 2-3 loose stools since morning Advance the diet from clear liquids to GI soft today Tolerating mashed potato Continues to have some pain, adjusted the pain medications IV Dilaudid, oral Percocet every 6 hours alternating I will continue IV Levaquin and IV Flagyl As well as hyoscyamine and cholestyramine GI following -- Diarrhea; due to acute colitis Current Visit: Yes Status: Acute Plan to address problem: IV and plenty oral fluids 12/25 C. difficile negative Follow stool cultures --Nausea & vomiting Current Visit: Yes Status: Acute Plan to address problem: Due to acute colitis, mild improvement Antiemetics, antacids --DVT prophylaxis Current Visit: Yes Status: Acute Plan to address problem: SCDs/SQ Heparin History Interval history: This is a 39 year old male with no medical history except of prior surgeries on his left foot from trauma several years ago who presented with n/v, hematemesis, diarrhea, generalized abd pain, generlaized body aches and hematochezia episodes at home CT of the abdomen revealed diffuse colitis and was started on levaquin, flagyl, IVF, made npo and a consult was placed to GI. On admit he had hyponatreumia of 133, hypokalemia of 3.4, and his Cr was 1.2 (unknown baseline). Today he has hyponaturemia of 132, his K is 3.6, and Cr is 1.1. His LA also trended up to 2.2 from 1.7 but repeat is 2.0. Yesterday the patient was given IV Dilaudid for 1 day per his request and declined [place] Phenergan. Today patient is complaining of scheduled Percocet which he took on an empty stomach however explained to the patient that the Percocet is as needed and he has the right to refuse any medical treatments. Dr. Law started the patient on Levbid and Questran to help with his diarrhea. Patient's electrolyte imbalances have been corrected. 12/28/2019; patient feels much better today, able to tolerate GI soft diet, number of loose stool decreased to 3-4 since morning Afebrile, on IV antibiotics, antiemetics and pain medications History Interval history: I have seen and examined the patient Patient feels slightly better Continues to complain of loose stools About 3-4 since morning Tolerating GI soft diet Vital signs noted Hospitalist Physical - Constitutional Vitals: Temp Pulse Resp BP Pulse Ox 98.8 F 74 20 109/80 99 12/28/19 15:53 12/28/19 15:53 12/28/19 15:53 12/28/19 15:53 12/28/19 15:53 General appearance: Present: mild distress, well-nourished - EENT Eyes: Present: PERRL, EOM intact - Neck Neck: Present: supple, normal ROM - Respiratory Respiratory effort: normal Respiratory: bilateral: diminished, negative: rales, rhonchi, wheezing - Cardiovascular Rhythm: regular Heart Sounds: Present: S1 & S2 - Extremities Extremities: no ischemia, No edema - Abdominal General gastrointestinal: soft, non-tender, non-distended, normal bowel sounds - Integumentary Integumentary: Present: clear, warm - Psychiatric Psychiatric: appropriate mood/affect, cooperative - Neurologic Neurologic: CNII-XII intact, moves all extremities Results - Labs CBC & Chem 7: 12/27/19 05:57 12/27/19 05:57 Labs: Laboratory Last Values WBC 7.2 K/mm3 (4.5-11.0) 12/27/19 05:57 RBC 4.33 M/mm3 (3.65-5.03) 12/27/19 05:57 Hgb 13.0 gm/dl (11.8-15.2) 12/27/19 05:57 Hct 37.4 % (35.5-45.6) 12/27/19 05:57 MCV 86 fl (84-94) 12/27/19 05:57 MCH 30 pg (28-32) 12/27/19 05:57 MCHC 35 % (32-34) H 12/27/19 05:57 RDW 13.4 % (13.2-15.2) 12/27/19 05:57 Plt Count 189 K/mm3 (140-440) 12/27/19 05:57 Lymph % (Auto) 16.5 % (13.4-35.0) 12/27/19 05:57 [place] % (Auto) 10.1 % (0.0-7.3) H 12/27/19 05:57 Eos % (Auto) 0.3 % (0.0-4.3) 12/27/19 05:57 Baso % (Auto) 0.1 % (0.0-1.8) 12/27/19 05:57 Lymph # (Auto) 1.2 K/mm3 (1.2-5.4) 12/27/19 05:57 [place] # (Auto) 0.7 K/mm3 (0.0-0.8) 12/27/19 05:57 Eos # (Auto) 0.0 K/mm3 (0.0-0.4) 12/27/19 05:57 Baso # (Auto) 0.0 K/mm3 (0.0-0.1) 12/27/19 05:57 Seg Neutrophils % 73.0 % (40.0-70.0) H 12/27/19 05:57 Seg Neutrophils # 5.3 K/mm3 (1.8-7.7) 12/27/19 05:57 Sodium 139 mmol/L (137-145) D 12/27/19 05:57 Potassium 3.9 mmol/L (3.6-5.0) 12/27/19 05:57 Chloride 104.0 mmol/L (98-107) 12/27/19 05:57 Carbon Dioxide 23 mmol/L (22-30) 12/27/19 05:57 Anion Gap 16 mmol/L 12/27/19 05:57 BUN 9 mg/dL (9-20) 12/27/19 05:57 Creatinine 1.0 mg/dL (0.8-1.3) 12/27/19 05:57 Estimated GFR > 60 ml/min 12/27/19 05:57 BUN/Creatinine Ratio 9 % 12/27/19 05:57 Glucose 96 mg/dL (75-100) 12/27/19 05:57 Lactic Acid 1.40 mmol/L (0.7-2.0) 12/26/19 13:20 Calcium 8.3 mg/dL (8.4-10.2) L 12/27/19 05:57 Total Bilirubin 0.60 mg/dL (0.1-1.2) 12/26/19 03:00 Direct Bilirubin 0.2 mg/dL (0-0.2) 12/26/19 01:29 Indirect Bilirubin 0.7 mg/dL 12/26/19 01:29 AST 13 units/L (5-40) 12/26/19 03:00 ALT 16 units/L (7-56) 12/26/19 03:00 Alkaline Phosphatase 74 units/L (35-129) 12/26/19 03:00 Total Protein 6.2 g/dL (6.3-8.2) L 12/26/19 03:00 Albumin 3.8 g/dL (3.9-5) L 12/26/19 03:00 Albumin/Globulin Ratio 1.6 % 12/26/19 03:00 Lipase 16 units/L (13-60) 12/26/19 01:29 Urine Color Straw (Yellow) 12/26/19 03:19 Urine Turbidity Clear (Clear) 12/26/19 03:19 Urine pH 6.0 (5.0-7.0) 12/26/19 03:19 Ur Specific [place] 1.005 (1.003-1.030) 12/26/19 03:19 Urine Protein <15 mg/dl mg/dL (Negative) 12/26/19 03:19 Urine Glucose (UA) Neg mg/dL (Negative) 12/26/19 03:19 Urine Ketones Tr mg/dL (Negative) 12/26/19 03:19 Urine Blood Sm (Negative) 12/26/19 03:19 Urine Nitrite Neg (Negative) 12/26/19 03:19 Urine Bilirubin Neg (Negative) 12/26/19 03:19 Urine Urobilinogen < 2.0 mg/dL (<2.0) 12/26/19 03:19 Ur Leukocyte Esterase Neg (Negative) 12/26/19 03:19 Urine WBC (Auto) 1.0 /HPF (0.0-6.0) 12/26/19 03:19 Urine RBC (Auto) 0.0 /HPF (0.0-6.0) 12/26/19 03:19 Urine Bacteria (Auto) 1+ /HPF (Negative) 12/26/19 03:19 C. difficile Tox (PCR) Negative (Negative) 12/26/19 03:19 Microbiology: Microbiology 12/27/19 00:26 Stool Stool Culture - Preliminary 12/27/19 00:26 Stool Stool for WBCs - Final 12/26/19 Unknown Urine,Clean Catch Urine Culture - Final NO GROWTH AFTER 48 HOURS 12/26/19 02:53 Peripheral/Venous Blood Culture - Preliminary NO GROWTH AFTER 48 HOURS 12/26/19 03:00 Peripheral/Venous Blood Culture - Preliminary NO GROWTH AFTER 48 HOURS Sorto/IV: Voiding Method Indwelling Catheter IV Catheter Type [Right Peripheral IV Antecubital] Active Medications - Current Medications Current Medications: Generic Name Dose Route Start Last Admin Trade Name Freq PRN Reason Stop Dose Admin Acetaminophen 650 mg 12/26/19 04:51 Tylenol PO Q4H PRN Pain MILD(1-3)/Fever >100.5/VICK Cholestyramine Resin 4 gm 12/27/19 16:00 12/28/19 11:17 Questran PO 4 gm QDAY PRATIK Administration Heparin Sodium (Porcine) 5,000 unit 12/27/19 22:00 12/28/19 11:16 Heparin SUB-Q 5,000 unit Q12HR PRATIK Administration Hydromorphone HCl 0.5 mg 12/28/19 15:25 Dilaudid IV Q6H PRN Pain , Severe (7-10) Hyoscyamine 0.125 mg 12/27/19 14:39 12/28/19 11:36 Levsin Sl SL 0.125 mg Q4H PRN Administration Spasms Sodium Chloride 1,000 mls @ 125 mls/hr 12/26/19 05:00 12/28/19 05:50 Nacl 0.9% 1000 Ml IV 125 mls/hr DIRECT PRATIK Administration Metronidazole 500 mg in 100 mls @ 100 mls/hr 12/26/19 06:00 12/28/19 14:22 Flagyl 500 Mg/100 Ml IV 100 mls/hr Q8HR PRATIK Administration Protocol Levofloxacin/Dextrose 500 mg in 100 mls @ 100 mls/hr 12/26/19 10:00 12/28/19 11:17 Levaquin 500mg/100ml IV 100 mls/hr Q24HR PRATIK Administration Protocol Naloxone HCl 0.1 mg 12/26/19 09:30 Naloxone IV Q2MIN PRN Res Rate </= 8 or 02 SAT < 92% Ondansetron HCl 4 mg 12/26/19 04:51 12/28/19 05:46 Zofran IV 4 mg Q8H PRN Administration Nausea And Vomiting Oxycodone/Acetaminophen 1 tab 12/26/19 10:00 12/27/19 22:31 Percocet 5/325 PO 1 tab Q6H PRN Administration Pain, Moderate (4-6) Pantoprazole Sodium 40 mg 12/26/19 10:00 12/28/19 11:16 Protonix IV 40 mg QDAY PRATIK Administration Sodium Chloride 10 ml 12/26/19 10:00 12/28/19 11:17 Sodium Chloride Flush Syringe 10 Ml IV 10 ml BID PRATIK Administration Sodium Chloride 10 ml 12/26/19 04:51 Sodium Chloride Flush Syringe 10 Ml IV PRN PRN LINE FLUSH
--- NOTE | 2019-12-28 17:42 | Gastroenterology Progress Note ---
Assessment and Plan - Patient Problems (1) Colitis Current Visit: Yes Status: Acute Plan to address problem: - Possible infectious colitis, but with normal WBC and fever curve, OK to transition to PO and treat for only 5 days. - Since C diff is negative, will stop the flagyl and cholestyramine - OK to d/c per our service with outpatient f/u Subjective Date of service: 12/28/19 Principal diagnosis: Colitis Interval history: The patient was able to tolerate a small amount of regular food today. There is no gross blood in the stools, and his temperature remains normal. Objective - Constitutional Vitals: Temp Pulse Resp BP Pulse Ox 98.8 F 74 20 109/80 99 12/28/19 15:53 12/28/19 15:53 12/28/19 15:53 12/28/19 15:53 12/28/19 15:53 General appearance: no acute distress - Respiratory Respiratory effort: normal Respiratory: bilateral: CTA - Cardiovascular Rhythm: regular Heart Sounds: Present: S1 & S2 - Gastrointestinal General gastrointestinal: Present: soft, non-tender, non-distended - Labs CBC & Chem 7: 12/27/19 05:57 12/27/19 05:57
[2019-12-28] MEDS: HYDROmorphone 1 MG/1 ML INJ IV PRN ×2 (18:28→23:10)
[2019-12-29] MEDS: ONDANSETRON 4 MG/2 ML INJ IV PRN ×2 (07:20→15:45)
[2019-12-29] MEDS: HYDROmorphone 1 MG/1 ML INJ IV PRN ×2 (07:21→15:44)
[2019-12-29] MEDS: PANTOPRAZOLE 40 MG INJ IV SCH (11:21)
[2019-12-29] MEDS: HEPARIN 5,000 UNIT/1 ML VIAL SUB-Q SCH (11:27)
--- NOTE | 2019-12-29 14:35 | Discharge Summary ---
Providers - Providers Date of Admission: 12/27/19 10:45 Date of discharge: 12/29/19 Attending physician: LASHELL FERNANDEZ 12/26/19 03:59 Consult to Physician [CONS] Routine Comment: Consulting Provider: MARIE GILES Physician Instructions: Reason For Exam: gi bleed. colitis Primary care physician: [facility] Hospitalization Condition: Critical Disposition: DC-01 TO HOME OR SELFCARE Time spent for discharge: 32 min Core Measure Documentation - Palliative Care Palliative Care/ Comfort Measures: Not Applicable - Core Measures Any of the following diagnoses?: none Exam - Constitutional Vitals: Temp Pulse Resp BP Pulse Ox 98.3 F 60 20 113/67 99 12/29/19 11:46 12/29/19 11:46 12/29/19 11:46 12/29/19 11:46 12/29/19 11:46 General appearance: Present: no acute distress, well-nourished - EENT Eyes: Present: PERRL, EOM intact - Neck Neck: Present: supple, normal ROM - Respiratory Respiratory effort: normal Respiratory: bilateral: diminished, negative: rales, rhonchi, wheezing - Cardiovascular Rhythm: regular Heart Sounds: Present: S1 & S2 - Extremities Extremities: no ischemia, No edema - Abdominal General gastrointestinal: Present: soft, non-tender, non-distended, normal bowel sounds - Integumentary Integumentary: Present: clear, warm - Musculoskeletal Musculoskeletal: strength equal bilaterally - Psychiatric Psychiatric: appropriate mood/affect, cooperative - Neurologic Neurologic: moves all extremities Plan Activity: no restrictions Diet: other (Diet as tolerated) Additional Instructions: Advance diet as tolerated. If you have worsening symptoms contact MD or go to emergency room. Advised to follow primary care physician, GI per schedule. Advised 2 days work excuse on 12/30/2019 and 12/31/2019,. May return to work on 01/01/2020 if tolerated,. if you are not well to return to work ,check with your primary care physician for further recommendations. Your diagnosis is; Acute colitis Follow up with: EM AGUDELO MD [Primary Care Provider] - 7 Days CHRIS JUAREZ MD [Staff Physician] - 14 Days Prescriptions: levoFLOXacin [Levaquin] 750 mg PO QDAY #3 tablet oxyCODONE /ACETAMINOPHEN [Percocet 5/325 mg] 1 tab PO BID PRN #10 tablet PRN Reason: Pain, Moderate (4-6) Pantoprazole [Protonix] 40 mg PO QDAY #30 tablet Ondansetron HCl [Zofran] 4 mg PO Q6H PRN #20 tablet PRN Reason: Nausea And Vomiting
[2019-12-29 16:04] VITALS: BP 111/64
== END 2019-12-29 18:40 | disposition home or self-care (01) | DRG 392 ==
LOC: ED 00:45 → 3B-SURG 04:02 → OBSVTOIN 12-27 10:45
PROVIDERS: ADMIT Internal Medicine; ATTEND Internal Medicine
DX: A09 Infectious gastroenteritis and colitis, unspecified (principal); K92.0 Hematemesis; E87.1 Hypo-osmolality and hyponatremia; E87.2 Acidosis; Z88.1 Allergy status to other antibiotic agents; Z82.49 Family history of ischemic heart disease and other diseases of the circulatory system; R73.9 Hyperglycemia, unspecified; E87.6 Hypokalemia
CPT/HCPCS: 36415; 70450; 74177; 80048; 80053; 80076; 81001; 82140; 83690; 85007; 85025; 87040; 87045; 87086; 87493; G0378; C9113; J1170; J1644; J1956; J2405; J7030; Q9967

== ENCOUNTER 2020-12-22 14:06 | Emergency (ER) | payer SELFPAY ==
[2020-12-22 15:07] VITALS: BP 120/77
[2020-12-22 15:34] LABS: Bilirubin,Urine NEG (Negative); Blood,Urine NEG (Negative); Color,Urine Yellow (Yellow); Mucus,Urine 3+ /HPF; Protein,Urine <15 mg/dL mg/dL (Negative); Urobilinogen,Urine < 2.0 mg/dL (<2.0)
[2020-12-22] MEDS ORDERED: LIDOCAINE-MPF (1%) 10 MG/1 ML VIAL 5 ML INFILTRATI ONE (15:43)
--- NOTE | 2020-12-22 15:58 | Emergency Department Report ---
ED Male HPI - General Chief complaint: Urogenital-Male Stated complaint: UROGENITAL MALE Time Seen by Provider: 12/22/20 15:17 Source: patient Mode of arrival: Ambulatory Limitations: No Limitations - History of Present Illness Initial comments: This is a 40-year-old male nontoxic, well nourished in appearance, no acute signs of distress presents to the ED with c/o of penile discharge. Patient denies any testicular pain or swelling. Patient denies any penile ulcers or lesions. Patient denies any nausea, vomiting, chest pain, shortness of breathe, fever, chills, headache, back pain, numbness, tingling, stiff neck. Patient denies any urinary symptoms. Patient stated allergies to azithromycin. Denies any significant past medical history. MD Complaint: penile discharge, dysuria -: days(s) Location: penis Severity scale (0 -10): 0 Improves with: none Worsens with: none discharge. denies: swelling, mass, rash, urinary retention, blood in urine, dysuria, fever, nausea/vomiting, incontinence - Related Data Sexually active: Yes Previous Rx's Medication Instructions Recorded Last Taken Type Ondansetron HCl [Zofran] 4 mg PO Q6H PRN #20 tablet 12/29/19 Unknown Rx Pantoprazole [Protonix] 40 mg PO QDAY #30 tablet 12/29/19 Unknown Rx levoFLOXacin [Levaquin] 750 mg PO QDAY #3 tablet 12/29/19 Unknown Rx oxyCODONE /ACETAMINOPHEN [Percocet 1 tab PO BID PRN #10 tablet 12/29/19 Unknown Rx 5/325 mg] Doxycycline Hyclate [Doxycycline 100 mg PO Q12HR #14 tab 12/22/20 Unknown Rx Hyclate TAB] Allergies Allergy/AdvReac Type Severity Reaction Status Date / Time azithromycin [From Zithromax] Allergy STOMACH Verified 06/15/15 13:11 AND TONGUE FALL ASLEEP/ ANXIETY ED Review of Systems ROS: Stated complaint: UROGENITAL MALE Other details as noted in HPI Comment: All other systems reviewed and negative Constitutional: denies: chills, fever Eyes: denies: eye pain, eye discharge, vision change ENT: denies: ear pain, throat pain Respiratory: denies: cough, shortness of breath, wheezing Cardiovascular: denies: chest pain, palpitations Endocrine: no symptoms reported Gastrointestinal: denies: abdominal pain, nausea, diarrhea Genitourinary: discharge. denies: urgency, dysuria, frequency, hematuria, testicular pain, testicular mass Musculoskeletal: denies: back pain, joint swelling, arthralgia Skin: denies: rash, lesions Neurological: denies: headache, weakness, paresthesias Psychiatric: denies: anxiety, depression Hematological/Lymphatic: denies: easy bleeding, easy bruising ED Past Medical Hx - Past Medical History Previous Medical History?: No Hx Congestive Heart Failure: No Hx Diabetes: No Hx Asthma: No Hx COPD: No Hx HIV: No Additional medical history: bronchitis - Social History Smoking Status: Never Smoker - Medications Home Medications: Home Medications Medication Instructions Recorded Confirmed Last Taken Type Ondansetron HCl [Zofran] 4 mg PO Q6H PRN #20 tablet 12/29/19 Unknown Rx Pantoprazole [Protonix] 40 mg PO QDAY #30 tablet 12/29/19 Unknown Rx levoFLOXacin [Levaquin] 750 mg PO QDAY #3 tablet 12/29/19 Unknown Rx oxyCODONE /ACETAMINOPHEN [Percocet 1 tab PO BID PRN #10 tablet 12/29/19 Unknown Rx 5/325 mg] Doxycycline Hyclate [Doxycycline 100 mg PO Q12HR #14 tab 12/22/20 Unknown Rx Hyclate TAB] ED Physical Exam - General Limitations: No Limitations General appearance: alert, in no apparent distress - Head Head exam: Present: atraumatic, normocephalic - Eye Eye exam: Present: normal appearance - Neck Neck exam: Present: normal inspection, full ROM. Absent: lymphadenopathy - Respiratory Respiratory exam: Absent: respiratory distress - Cardiovascular Cardiovascular Exam: Present: regular rate - GI/Abdominal GI/Abdominal exam: Present: soft, normal bowel sounds. Absent: distended, tenderness, guarding, rebound, rigid, diminished bowel sounds - Rectal Rectal exam: Present: deferred - exam: Present: normal inspection. Absent: testicular tenderness, urethral discharge, scrotal swelling, vertical testicular lie, circumcision External exam: Present: normal external exam. Absent: erythema, swelling, lesions, lacerations, ecchymosis, bleeding - Extremities Exam Extremities exam: Present: normal inspection, full ROM - Back Exam Back exam: Present: normal inspection, full ROM. Absent: tenderness, CVA tenderness (R), CVA tenderness (L), muscle spasm, paraspinal tenderness, vertebral tenderness, rash noted - Neurological Exam Neurological exam: Present: alert, oriented X3 - Psychiatric Psychiatric exam: Present: normal affect, normal mood - Skin Skin exam: Present: warm, dry, intact, normal color. Absent: rash ED Course Vital Signs 12/22/20 15:02 Temperature 98.4 F Pulse Rate 72 Respiratory 16 Rate Blood Pressure 120/77 [Right] O2 Sat by Pulse 98 Oximetry - Reevaluation(s) Reevaluation #1: 12/22/20 15:57 Patient is speaking in full sentences with no signs of distress noted. ED Medical Decision Making - Lab Data Lab Results 12/22/20 Range/Units Unknown Urine Color Yellow (Yellow) Urine Turbidity Clear (Clear) Urine pH 5.0 (5.0-7.0) Ur Specific [place] 1.020 (1.003-1.030) Urine Protein <15 mg/dl (Negative) mg/dL Urine Glucose (UA) Neg (Negative) mg/dL Urine Ketones Neg (Negative) mg/dL Urine Blood Neg (Negative) Urine Nitrite Neg (Negative) Urine Bilirubin Neg (Negative) Urine Urobilinogen < 2.0 (<2.0) mg/dL Ur Leukocyte Esterase Neg (Negative) Urine WBC (Auto) 3.0 (0.0-6.0) /HPF Urine RBC (Auto) 3.0 (0.0-6.0) /HPF Urine Mucus 3+ /HPF - Medical Decision Making This is a 40-year-old male that presents with possible STD. Patient is stable was examined by me. There is no abdominal tenderness. No pelvic pain. UA obtained. Gonorrhea chlamydia from UA was sent by RN and pending. Patient was instructed to return in 3-5 days for GC results. Patient wanted empirical treatment so patient received 250 mg Rocephin in the ED and will be discharged with doxycycline.. Patient was instructed to Follow-up with a primary care doctor in 3-5 days or if symptoms worsen and continue return to emergency room as soon as possible. At time of discharge, the patient does not seem toxic or ill in appearance. No acute signs of distress noted. Patient agrees to discharge treatment plan of care. No further questions noted by the patient. Critical care attestation.: If time is entered above; I have spent that time in minutes in the direct care of this critically ill patient, excluding procedure time. ED Disposition Clinical Impression: Possible exposure to STD Disposition: 01 HOME / SELF CARE / HOMELESS Is pt being admited?: No Does the pt Need Aspirin: No Condition: Stable Instructions: Safe Sex Additional Instructions: Follow-up with a primary care doctor in 3-5 days or if symptoms worsen and continue return to emergency room as soon as possible. Prescriptions: Doxycycline Hyclate [Doxycycline Hyclate TAB] 100 mg PO Q12HR #14 tab Referrals: PRIMARY MD CALVIN [Primary Care Provider] - 3-5 Days ROBERTO MATOS MD [Staff Physician] - 3-5 Days Forms: Work/School Release Form(ED) Time of Disposition: 15:58
== END 2020-12-22 16:52 | disposition home or self-care (01) ==
LOC: ED 14:06
DX: R36.9 Urethral discharge, unspecified (principal)
CPT/HCPCS: 81001; 96372; 99283; J0696

== ENCOUNTER 2021-02-13 20:40 | Emergency (ER) | payer SELFPAY ==
[2021-02-13 20:44] VITALS: BP 132/77
[2021-02-13 22:21] LABS: Bilirubin,Urine NEG (Negative); Blood,Urine NEG (Negative); Color,Urine Yellow (Yellow); Mucus,Urine 3+ /HPF; Protein,Urine <15 mg/dL mg/dL (Negative)
--- NOTE | 2021-02-13 23:12 | Emergency Department Report ---
ED Male HPI - General Chief complaint: Urogenital-Male Stated complaint: TROUBLE URINATING Source: patient Mode of arrival: Ambulatory Limitations: No Limitations - History of Present Illness Initial comments: Patient is a 40-year-old male who presented to the ED with complaint of acute onset persistent distal penile irritation and redness for the last 1 month. Patient states that occasionally his urethra appears to be blocked with large dry chunks of yellowish discharge. Patient states that he was initially evaluated for similar symptoms about a month ago in this ED and was discharged home on oral antibiotics which he did not complete because he was pulled over by the police and [facility] and lost his medications. Patient states that he believes that the treatment was not adequately concluded because he did not finish his antibiotics. Patient denies dysuria, urinary frequency and urgency, testicular pain, fever, chills, hematuria, abdominal pain, penile discharge, nausea and vomiting or low back pain. MD Complaint: other (Penile irritation) -: Sudden, month(s) (1) Location: penis Radiation: none Severity: mild Severity scale (0 -10): 1 Quality: dull Consistency: constant Improves with: none Worsens with: urination denies other symptoms. denies: discharge, swelling, mass, rash, urinary r etention, blood in urine, dysuria, fever, nausea/vomiting, incontinence, other - Related Data Sexually active: Yes Previous Rx's Medication Instructions Recorded Last Taken Type Ondansetron HCl [Zofran] 4 mg PO Q6H PRN #20 tablet 12/29/19 Unknown Rx Pantoprazole [Protonix] 40 mg PO QDAY #30 tablet 12/29/19 Unknown Rx levoFLOXacin [Levaquin] 750 mg PO QDAY #3 tablet 12/29/19 Unknown Rx oxyCODONE /ACETAMINOPHEN [Percocet 1 tab PO BID PRN #10 tablet 12/29/19 Unknown Rx 5/325 mg] Doxycycline Hyclate [Doxycycline 100 mg PO Q12HR #28 tab 02/13/21 Unknown Rx Hyclate TAB] Nystatin Oint [Mycostatin Oint] 1 applicatio TP BID #1 tube 02/13/21 Unknown Rx Allergies Allergy/AdvReac Type Severity Reaction Status Date / Time azithromycin [From Zithromax] Allergy STOMACH Verified 06/15/15 13:11 AND TONGUE FALL ASLEEP/ ANXIETY morphine Allergy Unknown Verified 02/13/21 20:44 ED Review of Systems ROS: Stated complaint: TROUBLE URINATING Other details as noted in HPI Constitutional: denies: chills, fever Eyes: denies: eye pain, eye discharge, vision change ENT: denies: ear pain, throat pain Respiratory: denies: cough, shortness of breath, wheezing Cardiovascular: denies: chest pain, palpitations Endocrine: no symptoms reported Gastrointestinal: denies: abdominal pain, nausea, diarrhea Genitourinary: other (Penile irritation). denies: urgency, dysuria Musculoskeletal: denies: back pain, joint swelling, arthralgia Skin: other (Penile irritation). denies: rash, lesions Neurological: denies: headache, weakness, paresthesias Psychiatric: denies: anxiety, depression Hematological/Lymphatic: denies: easy bleeding, easy bruising ED Past Medical Hx - Past Medical History Previous Medical History?: Yes Hx Congestive Heart Failure: No Hx Diabetes: No Hx Asthma: No Hx COPD: No Hx HIV: No Additional medical history: bronchitis - Surgical History Past Surgical History?: No - Social History Smoking Status: Never Smoker - Medications Home Medications: Home Medications Medication Instructions Recorded Confirmed Last Taken Type Ondansetron HCl [Zofran] 4 mg PO Q6H PRN #20 tablet 12/29/19 Unknown Rx Pantoprazole [Protonix] 40 mg PO QDAY #30 tablet 12/29/19 Unknown Rx levoFLOXacin [Levaquin] 750 mg PO QDAY #3 tablet 12/29/19 Unknown Rx oxyCODONE /ACETAMINOPHEN [Percocet 1 tab PO BID PRN #10 tablet 12/29/19 Unknown Rx 5/325 mg] Doxycycline Hyclate [Doxycycline 100 mg PO Q12HR #28 tab 02/13/21 Unknown Rx Hyclate TAB] Nystatin Oint [Mycostatin Oint] 1 applicatio TP BID #1 tube 02/13/21 Unknown Rx ED Physical Exam - General Limitations: No Limitations General appearance: alert, in no apparent distress - Head Head exam: Present: atraumatic, normocephalic, normal inspection - Eye Eye exam: Present: normal appearance, PERRL, EOMI Pupils: Present: normal accommodation - ENT ENT exam: Present: normal exam, normal orophraynx, mucous membranes moist, TM's normal bilaterally, normal external ear exam - Neck Neck exam: Present: normal inspection, full ROM - Respiratory Respiratory exam: Present: normal lung sounds bilaterally. Absent: respiratory distress, wheezes, rales, rhonchi, stridor, chest wall tenderness, accessory muscle use, decreased breath sounds, prolonged expiratory - Cardiovascular Cardiovascular Exam: Present: regular rate, normal rhythm, normal heart sounds. Absent: systolic murmur, diastolic murmur, rubs, gallop - GI/Abdominal GI/Abdominal exam: Present: soft, normal bowel sounds. Absent: tenderness, guarding, rebound, hyperactive bowel sounds, hypoactive bowel sounds, mass, bruit - exam: Present: normal inspection, circumcision. 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 Absent: erythema, lesions, lacerations - Extremities Exam Extremities exam: Present: normal inspection, full ROM, normal capillary refill - Back Exam Back exam: Present: normal inspection, full ROM. Absent: tenderness, CVA tenderness (R), CVA tenderness (L), muscle spasm, paraspinal tenderness, vertebral tenderness - Neurological Exam Neurological exam: Present: alert, oriented X3, CN II-XII intact, normal gait, reflexes normal - Psychiatric Psychiatric exam: Present: normal affect, normal mood - Skin Skin exam: Present: warm, dry, intact, normal color. Absent: rash ED Course Vital Signs 02/13/21 20:42 Temperature 98.3 F Pulse Rate 73 Respiratory 18 Rate Blood Pressure 132/77 O2 Sat by Pulse 96 Oximetry ED Medical Decision Making - Medical Decision Making This is a 40-year-old male who presented to the ED with complaint of acute onset persistent distal penile irritation and redness for the last 1 month. Patient states that occasionally his urethra appears to be blocked with large dry chunks of yellowish discharge. Patient states that he was initially evaluated for similar symptoms about a month ago in this ED and was discharged home on oral antibiotics which he did not complete because he was pulled over by the police and [facility] and lost his medications. Patient states that he believes that the treatment was not adequately concluded because he did not finish his antibiotics. In the ED, patient is alert and oriented x3 and is not in any distress. Urinalysis is unremarkable except for an some budding yeast. Patient was discharged home empirically on oral doxycycline and topical nystatin ointment for the mild irritated penis area suspected be due to yeast infection. Patient was advised to follow-up with his primary care physician in 7 to 10 days for reevaluation or return to the ED immediately if symptoms get worse. - Differential Diagnosis Penile irritation; STD; [place] penile infection; trichomonas Critical care attestation.: If time is entered above; I have spent that time in minutes in the direct care of this critically ill patient, excluding procedure time. ED Disposition Clinical Impression: Possible exposure to STD Disposition: HOME / SELF CARE / HOMELESS Is pt being admited?: No Does the pt Need Aspirin: No Condition: Stable Instructions: Safe Sex, Trichomoniasis, Genital Yeast Infection, Male, Chlamydia, Male Additional Instructions: Take medication completely until finished, drink plenty of fluids and follow-up with the [facility] for further STD testing including syphilis and HIV. Ensure that your sexual partner also gets tested and treated for the same. Return to the ED immediately if symptoms get worse. Prescriptions: Doxycycline Hyclate [Doxycycline Hyclate TAB] 100 mg PO Q12HR #28 tab Nystatin Oint [Mycostatin Oint] 1 applicatio TP BID #1 tube Referrals: [facility] [Outside] - 3-5 Days PRIMARY CARE, [Primary Care Provider] - 7-10 days Time of Disposition: 23:16 Print Language: FRISIAN
== END 2021-02-13 23:30 | disposition home or self-care (01) ==
LOC: ED 20:40
DX: N48.89 Other specified disorders of penis (principal); R36.9 Urethral discharge, unspecified
CPT/HCPCS: 81001; 99283

== ENCOUNTER 2021-10-17 08:50 | Inpatient (IN) | payer SELFPAY ==
[2021-10-17 10:09] LABS: Basophils % (Auto) 0.3 % (0.0-1.8); Hematocrit 44.5 % (35.5-45.6); Hemoglobin 15.2 gm/dl (11.8-15.2); Lymphocytes # (Auto) 1.1 K/mm3 (1.2-5.4); Lymphocytes % (Auto) 11.8 % (13.4-35.0); Mean Corpuscular HGB Conc 34 % (32-34); Mean Corpuscular Volume 87 fl (84-94); Monocytes # (Auto) 0.6 K/mm3 (0.0-0.8); Monocytes % (Auto) 6.3 % (0.0-7.3); Platelet Count 207 K/mm3 (140-440); Red Blood Count 5.12 M/mm3 (3.65-5.03); Red Cell Distribution Width 13.8 % (13.2-15.2)
[2021-10-17] MEDS ORDERED: SODIUM CHLORIDE 0.9% 1000 ML 1,000 ML IV ONE (10:17)
[2021-10-17] MEDS ORDERED: ONDANSETRON 4 MG/2 ML INJ IV ONE (10:17)
[2021-10-17] MEDS ORDERED: fentaNYL 100 MCG/2 ML INJ IV ONE (10:17)
--- NOTE | 2021-10-17 10:25 | Emergency Department Report ---
HPI - General Chief Complaint: Abdominal Pain Time Seen by Provider: 10/17/21 09:58 - HPI HPI: Room 22 The patient is a 41-year-old male present with a chief complaint of abdominal pain and diarrhea. Patient states symptoms began yesterday afternoon after eating a kale salad. Patient states he began to feel weak and diaphoretic. Patient states he had nausea and then developed diarrhea with cramping abdominal pain. Patient states he had frequent liquid stools brown in color with streaks of blood. Patient admits to fever of 101 F at home. Patient currently gives his abdominal pain a score of 10/10. Patient was admitted to this hospital for the same presentation December 2019 and was diagnosed with acute colitis. Patient states his presentation feels the same as it did in 2020 ED Past Medical Hx - Past Medical History Previous Medical History?: No Hx Asthma: No Hx COPD: No Hx HIV: No Additional medical history: bronchitis, acute colitis - Surgical History Past Surgical History?: No Additional Surgical History: L foot - Family History Family history: no significant - Social History Smoking Status: Never Smoker Substance Use Type: None (Denies illicit drug use), Alcohol (Rarely) - Medications Home Medications: Home Medications Medication Instructions Recorded Confirmed Last Taken Type Pantoprazole [Protonix] 40 mg PO QDAY #30 tablet 12/29/19 Unknown Rx levoFLOXacin [Levaquin] 750 mg PO QDAY #3 tablet 12/29/19 Unknown Rx ondansetron HCL [Zofran] 4 mg PO Q6H PRN #20 tablet 12/29/19 Unknown Rx oxyCODONE /ACETAMINOPHEN [Percocet 1 tab PO BID PRN #10 tablet 12/29/19 Unknown Rx 5/325 mg] Doxycycline Hyclate [Doxycycline 100 mg PO Q12HR #28 tab 02/13/21 Unknown Rx Hyclate TAB] Nystatin Oint [Mycostatin Oint] 1 applicatio TP BID #1 tube 02/13/21 Unknown Rx ED Review of Systems ROS: Stated complaint: FEVER/BLOOD IN STOOL/NAUSEA Other details as noted in HPI Constitutional: fever Eyes: denies: eye pain ENT: denies: throat pain Cardiovascular: denies: chest pain Endocrine: no symptoms reported Gastrointestinal: abdominal pain, nausea, diarrhea, hematochezia. denies: vomiting Genitourinary: denies: dysuria Musculoskeletal: denies: back pain Neurological: denies: headache Physical Exam - Physical Exam Vital Signs: Vital Signs 10/17/21 08:54 Temperature 100 F H Pulse Rate 102 H Respiratory 18 Rate Blood Pressure 123/61 [Right] O2 Sat by Pulse 97 Oximetry Physical Exam: GENERAL: The patient is well-developed well-nourished male lying on stretcher not appearing to be in acute distress. [] HEENT: Normocephalic. Atraumatic. Extraocular motions are intact. Patient has moist mucous membranes. NECK: Supple. Trachea midline CHEST/LUNGS: Clear to auscultation. There is no respiratory distress noted. HEART/CARDIOVASCULAR: Regular. There is no tachycardia. There is no gallop rub or murmur. ABDOMEN: Abdomen is soft, nontender. Patient has normal bowel sounds. There is no abdominal distention. SKIN: There is no rash. There is no edema. There is no diaphoresis. NEURO: The patient is awake, alert, and oriented. The patient is cooperative. The patient has no focal neurologic deficits. The patient has normal speech. GCS 15 MUSCULOSKELETAL:There is no evidence of acute injury. ED Course Vital Signs 10/17/21 08:54 Temperature 100 F H Pulse Rate 102 H Respiratory 18 Rate Blood Pressure 123/61 [Right] O2 Sat by Pulse 97 Oximetry - Consultations Consultation #1: 10/17/21 13:31 Case discussed with hoist operator Dr. Paez-recommends Flagyl 500 mg 3 times daily and ciprofloxacin 500 mg twice daily. Will consult ED Medical Decision Making - Lab Data Result diagrams: 10/17/21 09:25 10/17/21 09:25 Laboratory Tests 10/17/21 10/17/21 10/17/21 09:25 09:25 09:27 WBC 9.5 RBC 5.12 H Hgb 15.2 Hct 44.5 MCV 87 MCH 30 MCHC 34 RDW 13.8 Plt Count 207 Lymph % (Auto) 11.8 L [place] % (Auto) 6.3 Eos % (Auto) 0.0 Baso % (Auto) 0.3 Lymph # (Auto) 1.1 L [place] # (Auto) 0.6 Eos # (Auto) 0.0 Baso # (Auto) 0.0 Seg Neutrophils % 81.6 H Seg Neutrophils # 7.7 Sodium 130 L Potassium 3.8 Chloride 95.3 L Carbon Dioxide 18 L Anion Gap 21 BUN 9 Creatinine 0.8 Estimated GFR > 60 BUN/Creatinine Ratio 11 Glucose 106 H Calcium 9.3 Total Bilirubin 0.90 AST 14 ALT 20 Alkaline Phosphatase 97 Total Protein 7.5 Albumin 4.7 Albumin/Globulin Ratio 1.7 Lipase 23 Urine Color Yellow Urine Turbidity Clear Specific [place] (Man) 1.025 Ur Protein (Man) 2+ Ur Ketones (Man) 160 Ur Nitrite (Man) Negative Ur Reducing Substances Not Reportable Urine Bilirubin (Man) Negative Urine Ictotest Not Reportable Leukocyte Esterase (Man) Negative Urine WBC (Auto) < 1.0 Urine RBC (Auto) < 1.0 U Epithel Cells (Auto) < 1.0 Urine RBC (Manual) Negative Urine Mucus 3+ - Radiology Data Radiology results: report reviewed (CT abdomen pelvis), image reviewed (CT abdomen pelvis) [address] [address] Cat Scan Report Signed Patient: SAM JUAREZ MR#: [id number] : 1980 Acct:[id number] Age/Sex: 41 / M ADM Date: 10/17/21 Loc: ED Attending Dr: Ordering Physician: OSMIN ARIAS MD Date of Service: 10/17/21 Procedure(s): CT abdomen pelvis w con Accession Number(s): [id number] cc: OSMIN ARIAS MD CT ABDOMEN AND PELVIS WITH CONTRAST INDICATION / CLINICAL INFORMATION: Lower abdominal pain, diarrhea. TECHNIQUE: Axial CT images were obtained through the abdomen and pelvis after Omnipaque 350, 100 cc IV contrast. All CT scans at this location are performed using CT dose reduction for ALARA by means of automated exposure control. COMPARISON: None available. FINDINGS: LOWER CHEST: No significant abnormality. LIVER: No significant abnormality. GALLBLADDER: No significant abnormality. BILE DUCTS: No significant abnormality. PANCREAS: No significant abnormality. SPLEEN: No significant abnormality. ADRENALS: No significant abnormality. RIGHT KIDNEY / URETER: 1 cm cyst. LEFT KIDNEY / URETER: No significant abnormality. STOMACH / SMALL BOWEL: Mild fluid-filled small bowel greater distally. COLON: Moderate diffuse thickening. APPENDIX: No significant abnormality. PERITONEUM: No free fluid. No free air. No fluid collection. LYMPH NODES: No significant adenopathy. VASCULAR STRUCTURES: No significant abnormality. URINARY BLADDER: No significant abnormality. REPRODUCTIVE ORGANS: No significant abnormality. ADDITIONAL FINDINGS: None. SKELETAL SYSTEM: No significant abnormality. IMPRESSION: 1. Moderate diffuse colitis. Signer Name: Rui Vyas MD Signed: 10/17/2021 12:57 PM Workstation Name: [id number] Transcribed By: ES Dictated By: Rui Vyas MD Electronically Authenticated By: Rui Vyas MD Signed Date/Time: 10/17/21 1257 DD/ 1253 TD/TT: - Differential Diagnosis Infectious colitis, ulcerative colitis, Crohn's disease Critical care attestation.: If time is entered above; I have spent that time in minutes in the direct care of this critically ill patient, excluding procedure time. ED Disposition Clinical Impression: Acute colitis, Acute abdominal pain, Fever Disposition: ADMITTED INPATIENT Is pt being admited?: Yes Does the pt Need Aspirin: No Condition: Fair Referrals: ROBERTO MATOS MD [Primary Care Provider] - 3-5 Days Time of Disposition: 13:37 (Care transferred to hospitalist (Dr. Hatch))
[2021-10-17 10:33] LABS: Alanine Aminotransferase 20 units/L (7-56); Albumin 4.7 g/dL (3.9-5); BUN/Creatinine Ratio 11; Blood Urea Nitrogen 9 mg/dL (9-20); Calcium 9.3 mg/dL (8.4-10.2); Hemolysis Index 15
[2021-10-17] MEDS ORDERED: HYDROmorphone 1 MG/1 ML INJ IV ONE ×2 (10:53→13:43)
[2021-10-17 11:17] LABS: Mucus,Urine 3+ /HPF; RBC,Urine < 1.0 /HPF (0.0-6.0); WBC,Urine < 1.0 /HPF (0.0-6.0)
[2021-10-17 11:27] LABS: Color,Urine Yellow (Yellow)
[2021-10-17] MEDS ORDERED: ACETAMINOPHEN 500 MG TAB PO ONE (12:20)
--- NOTE | 2021-10-17 13:01 | Cat Scan Report ---
CT ABDOMEN AND PELVIS WITH CONTRAST INDICATION / CLINICAL INFORMATION: Lower abdominal pain, diarrhea. TECHNIQUE: Axial CT images were obtained through the abdomen and pelvis after Omnipaque 350, 100 cc I V contrast. All CT scans at this location are performed using CT dose reduction for ALARA by means o f automated exposure control. COMPARISON: None available. FINDINGS: LOWER CHEST: No significant abnormality. LIVER: No significant abnormality. GALLBLADDER: No significant abnormality. BILE DUCTS: No significant abnormality. PANCREAS: No significant abnormality. SPLEEN: No significant abnormality. ADRENALS: No significant abnormality. RIGHT KIDNEY / URETER: 1 cm cyst. LEFT KIDNEY / URETER: No significant abnormality. STOMACH / SMALL BOWEL: Mild fluid-filled small bowel greater distally. COLON: Moderate diffuse thickening. APPENDIX: No significant abnormality. PERITONEUM: No free fluid. No free air. No fluid collection. LYMPH NODES: No significant adenopathy. VASCULAR STRUCTURES: No significant abnormality. URINARY BLADDER: No significant abnormality. REPRODUCTIVE ORGANS: No significant abnormality. ADDITIONAL FINDINGS: None. SKELETAL SYSTEM: No significant abnormality. IMPRESSION: 1. Moderate diffuse colitis. Signer Name: Rui Vyas MD Signed: 10/17/2021 12:57 PM Workstation Name: [id number]
[2021-10-17] MEDS ORDERED: metroNIDAZOLE/NS 500 MG/100 ML 500 MG/100 ML BAG IV ONE (13:38)
[2021-10-17] MEDS ORDERED: PROMETHAZINE 25 MG TAB PO ONE (13:43)
[2021-10-17] MEDS ORDERED: ONDANSETRON 4 MG/2 ML INJ IV PRN ×2 (13:44→18:36)
[2021-10-17] MEDS ORDERED: HYDROcodone/ACETAMINOPHEN 5-325 MG TAB PO PRN (13:44)
[2021-10-17] MEDS ORDERED: ACETAMINOPHEN 325 MG TAB PO PRN ×2 (13:44→18:36)
--- NOTE | 2021-10-17 18:35 | History and Physical Report ---
History of Present Illness Date of examination: 10/17/21 Date of admission: 10/17/21 13:44 Chief complaint: Abdominal pain and diarrhea following day History of present illness: 41-year-old male with history of colitis few months ago and not on any medication comes in for acute abdominal pain of 1 day duration and associated with diarrhea. Loose bowel movements 3 to 4-day. Low-grade fever present. Abdominal pain is 10 on a scale of 1-10. Intermittent in nature and sharp in nature. Patient had similar presentation on 03/11/2019. Any oral intake is exacerbating factor. Not eating is a relieving factor - Past Medical History Bronchitis, acute colitis - Surgical History Additional Surgical History: L foot - Family History Family history: no significant - Social History Smoking Status: Never Smoker Substance Use Type: None (Denies illicit drug use), Alcohol (Rarely) - Medications Home Medications: Home Medications Medication Instructions Recorded Confirmed Last Taken Type Pantoprazole [Protonix] 40 mg PO QDAY #30 tablet 12/29/19 Unknown Rx levoFLOXacin [Levaquin] 750 mg PO QDAY #3 tablet 12/29/19 Unknown Rx ondansetron HCL [Zofran] 4 mg PO Q6H PRN #20 tablet 12/29/19 Unknown Rx oxyCODONE /ACETAMINOPHEN [Percocet 1 tab PO BID PRN #10 tablet 12/29/19 Unknown Rx 5/325 mg] Doxycycline Hyclate [Doxycycline 100 mg PO Q12HR #28 tab 02/13/21 Unknown Rx Hyclate TAB] Nystatin Oint [Mycostatin Oint] 1 applicatio TP BID #1 tube 02/13/21 Unknown Rx Review of Systems ROS: Stated complaint: FEVER/BLOOD IN STOOL/NAUSEA Other details as noted in HPI Constitutional: fever Eyes: denies: eye pain ENT: denies: throat pain Cardiovascular: denies: chest pain Endocrine: no symptoms reported Gastrointestinal: abdominal pain, nausea, diarrhea, hematochezia. denies: vomiting Genitourinary: denies: dysuria Musculoskeletal: denies: back pain Neurological: denies: headache Medications and Allergies Allergies Allergy/AdvReac Type Severity Reaction Status Date / Time azithromycin [From Zithromax] Allergy STOMACH Verified 10/17/21 13:47 AND TONGUE FALL ASLEEP/ ANXIETY morphine Allergy Unknown Verified 10/17/21 13:47 Home Medications Medication Instructions Recorded Confirmed Last Taken Type Pantoprazole [Protonix] 40 mg PO QDAY #30 tablet 12/29/19 10/18/21 Unknown Rx levoFLOXacin [Levaquin] 750 mg PO QDAY #3 tablet 12/29/19 10/18/21 Unknown Rx ondansetron HCL [Zofran] 4 mg PO Q6H PRN #20 tablet 12/29/19 10/18/21 Unknown Rx oxyCODONE /ACETAMINOPHEN [Percocet 1 tab PO BID PRN #10 tablet 12/29/19 10/18/21 Unknown Rx 5/325 mg] Doxycycline Hyclate [Doxycycline 100 mg PO Q12HR #28 tab 02/13/21 10/18/21 Unknown Rx Hyclate TAB] Nystatin Oint [Mycostatin Oint] 1 applicatio TP BID #1 tube 02/13/21 10/18/21 Unknown Rx Active Meds: Active Medications Acetaminophen (Acetaminophen 325 Mg Tab) 650 mg PO Q4H PRN PRN Reason: Pain MILD(1-3)/Fever >100.5/VICK Hydrocodone Bitart/Acetaminophen (Hydrocodone/Acetaminophen 5-325 Mg Tab) 2 each PO Q6H PRN PRN Reason: Pain, Moderate (4-6) Ondansetron HCl (Ondansetron 4 Mg/2 Ml Inj) 4 mg IV Q8H PRN PRN Reason: Nausea And Vomiting Sodium Chloride (Sodium Chloride 0.9% 10 Ml Flush Syringe) 10 ml IV BID PRATIK Sodium Chloride (Sodium Chloride 0.9% 10 Ml Flush Syringe) 10 ml IV PRN PRN PRN Reason: LINE FLUSH Exam - Constitutional Vitals: Temp Pulse Resp BP Pulse Ox 100.3 F H 94 H 23 117/69 98 10/17/21 10:42 10/17/21 14:00 10/17/21 14:00 10/17/21 18:00 10/17/21 18:00 General appearance: Present: no acute distress, well-nourished - EENT Eyes: Present: PERRL ENT: hearing intact, clear oral mucosa - Neck Neck: Present: supple, normal ROM - Respiratory Respiratory effort: normal Respiratory: bilateral: CTA - Cardiovascular Heart rate: 78 Rhythm: regular Heart Sounds: Present: S1 & S2. Absent: rub, click - Extremities Extremities: pulses symmetrical, No edema Peripheral Pulses: within normal limits - Abdominal General gastrointestinal: Present: soft, tender, non-distended, normal bowel sounds Localized gastrointestinal: tender: diffuse, guarding: diffuse Male genitourinary: Present: normal - Integumentary Integumentary: Present: clear, warm, dry - Musculoskeletal Musculoskeletal: gait normal, strength equal bilaterally - Psychiatric Psychiatric: appropriate mood/affect, intact judgment & insight - Neurologic Neurologic: CNII-XII intact, moves all extremities Results - Labs CBC & Chem 7: 10/17/21 09:25 10/17/21 09:25 Labs: Laboratory Last Values WBC 9.5 K/mm3 (4.5-11.0) 10/17/21 09:25 RBC 5.12 M/mm3 (3.65-5.03) H 10/17/21 09:25 Hgb 15.2 gm/dl (11.8-15.2) 10/17/21 09:25 Hct 44.5 % (35.5-45.6) 10/17/21 09:25 MCV 87 fl (84-94) 10/17/21 09:25 MCH 30 pg (28-32) 10/17/21 09:25 MCHC 34 % (32-34) 10/17/21 09:25 RDW 13.8 % (13.2-15.2) 10/17/21 09:25 Plt Count 207 K/mm3 (140-440) 10/17/21 09:25 Lymph % (Auto) 11.8 % (13.4-35.0) L 10/17/21 09:25 [place] % (Auto) 6.3 % (0.0-7.3) 10/17/21 09:25 Eos % (Auto) 0.0 % (0.0-4.3) 10/17/21 09:25 Baso % (Auto) 0.3 % (0.0-1.8) 10/17/21 09:25 Lymph # (Auto) 1.1 K/mm3 (1.2-5.4) L 10/17/21 09:25 [place] # (Auto) 0.6 K/mm3 (0.0-0.8) 10/17/21 09:25 Eos # (Auto) 0.0 K/mm3 (0.0-0.4) 10/17/21 09:25 Baso # (Auto) 0.0 K/mm3 (0.0-0.1) 10/17/21 09:25 Seg Neutrophils % 81.6 % (40.0-70.0) H 10/17/21 09:25 Seg Neutrophils # 7.7 K/mm3 (1.8-7.7) 10/17/21 09:25 Sodium 130 mmol/L (137-145) L 10/17/21 09:25 Potassium 3.8 mmol/L (3.6-5.0) 10/17/21 09:25 Chloride 95.3 mmol/L (98-107) L 10/17/21 09:25 Carbon Dioxide 18 mmol/L (22-30) L 10/17/21 09:25 Anion Gap 21 mmol/L 10/17/21 09:25 BUN 9 mg/dL (9-20) 10/17/21 09:25 Creatinine 0.8 mg/dL (0.8-1.3) 10/17/21 09:25 Estimated GFR > 60 ml/min 10/17/21 09:25 BUN/Creatinine Ratio 11 % 10/17/21 09:25 Glucose 106 mg/dL (75-100) H 10/17/21 09:25 Calcium 9.3 mg/dL (8.4-10.2) 10/17/21 09:25 Total Bilirubin 0.90 mg/dL (0.1-1.2) 10/17/21 09:25 AST 14 units/L (5-40) 10/17/21 09:25 ALT 20 units/L (7-56) 10/17/21 09:25 Alkaline Phosphatase 97 units/L (35-129) 10/17/21 09:25 Total Protein 7.5 g/dL (6.3-8.2) 10/17/21 09:25 Albumin 4.7 g/dL (3.9-5) 10/17/21 09:25 Albumin/Globulin Ratio 1.7 % 10/17/21 09:25 Lipase 23 units/L (13-60) 10/17/21 09:25 Urine Color Yellow (Yellow) 10/17/21 09:27 Urine Turbidity Clear (Clear) 10/17/21 09:27 Specific [place]) 1.025 (1.003-1.030) 10/17/21 09:27 Ur Protein (Man) 2+ mg/dL (Negative) 10/17/21 09:27 Ur Ketones (Man) 160 (Negative) 10/17/21 09:27 Ur Nitrite (Man) Negative (Negative) 10/17/21 09:27 Ur Reducing Substances Not Reportable 10/17/21 09:27 Urine Bilirubin (Man) Negative (Negative) 10/17/21 09:27 Urine Ictotest Not Reportable 10/17/21 09:27 Leukocyte Esterase (Man) Negative (Negative) 10/17/21 09:27 Urine WBC (Auto) < 1.0 /HPF (0.0-6.0) 10/17/21 09:27 Urine RBC (Auto) < 1.0 /HPF (0.0-6.0) 10/17/21 09:27 U Epithel Cells (Auto) < 1.0 /HPF (0-13.0) 10/17/21 09:27 Urine RBC (Manual) Negative (Negative) 10/17/21 09:27 Urine Mucus 3+ /HPF 10/17/21 09:27 C. difficile Tox (PCR) Negative (Negative) 10/17/21 Unknown Short CBC 10/17/21 Range/Units 09:25 WBC 9.5 (4.5-11.0) K/mm3 Hgb 15.2 (11.8-15.2) gm/dl Hct 44.5 (35.5-45.6) % Plt Count 207 (140-440) K/mm3 BMP 10/17/21 09:25 Sodium 130 L Potassium 3.8 Chloride 95.3 L Carbon Dioxide 18 L BUN 9 Creatinine 0.8 Glucose 106 H Calcium 9.3 Liver Function 10/17/21 Range/Units 09:25 Total Bilirubin 0.90 (0.1-1.2) mg/dL AST 14 (5-40) units/L ALT 20 (7-56) units/L Alkaline Phosphatase 97 (35-129) units/L Albumin 4.7 (3.9-5) g/dL Urine 10/17/21 Range/Units 09:27 Urine Color Yellow (Yellow) Microbiology: Microbiology 10/17/21 14:19 Stool Stool Occult Blood (ROSE) - Final 10/17/21 14:19 Stool Stool for WBCs - Final Many Polymorphonuclear Cells Seen - Imaging and Cardiology Imaging and Cardiology: Abdomen/pelvis CT Moderate diffuse colitis Assessment and Plan Advance Directives: Yes (Full code) VTE prophylaxis?: Chemical Plan of care discussed with patient/family: Yes - Patient Problems (1) Acute colitis Current Visit: Yes Status: Acute Plan to address problem: Etiology unclear C. difficile toxin requested GI consult requested IV Flagyl and low-dose steroids IV fluids for now (2) Diarrhea Current Visit: No Status: Acute Plan to address problem: Rule out C. difficile Was not on any antibiotics recently IV fluids for now (3) Hyponatremia Current Visit: Yes Status: Acute Plan to address problem: IV normal saline for now (4) DVT prophylaxis Current Visit: No Status: Acute Plan to address problem: On anticoagulation GI prophylaxis (5) Advance care planning Current Visit: Yes Status: Acute Plan to address problem: Disease education conducted care plan discussed diagnosis discussed and pro gnosis discussed. Patient is full code. Patient acknowledged understanding of the care plan. +30 minutes.
[2021-10-17] MEDS ORDERED: METOCLOPRAMIDE 10 MG/2 ML INJ IV PRN (18:36)
[2021-10-17] MEDS ORDERED: MORPHINE 2 MG/1 ML INJ IV PRN (18:36)
[2021-10-17] MEDS: metroNIDAZOLE/NS 500 MG/100 ML 500 MG/100 ML BAG IV SCH (19:47)
[2021-10-17] MEDS: HYDROmorphone 0.5 MG/0.5 ML INJ IV PRN (20:49)
[2021-10-17] MEDS: D5W/0.9% NACL 1,000 ML IV SCH (20:50)
[2021-10-17] MEDS: HEPARIN 5,000 UNIT/1 ML VIAL SUB-Q SCH (21:37)
[2021-10-17] MEDS: methylPREDNISolone Sod Succinate 125 MG/2 ML INJ IV SCH (21:37)
[2021-10-17] MEDS: FAMOTIDINE 20 MG/2 ML INJ IV SCH (21:38)
[2021-10-18] MEDS: metroNIDAZOLE/NS 500 MG/100 ML 500 MG/100 ML BAG IV SCH ×3 (03:02→18:38)
[2021-10-18] MEDS: HYDROmorphone 0.5 MG/0.5 ML INJ IV PRN ×3 (03:06→15:39)
[2021-10-18] MEDS: D5W/0.9% NACL 1,000 ML IV SCH ×2 (04:27→15:45)
[2021-10-18] MEDS: methylPREDNISolone Sod Succinate 125 MG/2 ML INJ IV SCH ×2 (05:33→14:15)
[2021-10-18] MEDS: FAMOTIDINE 20 MG/2 ML INJ IV SCH (09:32)
[2021-10-18] MEDS: HEPARIN 5,000 UNIT/1 ML VIAL SUB-Q SCH (09:33)
--- NOTE | 2021-10-18 10:44 | Gastroenterology Consultation ---
<VADLO NATION - Last Filed: 10/18/21 11:30> History of Present Illness - Reason for Consult Consult date: 10/18/21 - History of Present Illness Mr. Springer is a 41 y/o M w/ no known medical history, who GI has been consulted on for colitis. Pt states that he had a prior episode of colitis last year and was also admitted to [facility]. Denies endoscopic workup or followup outpatient. Pt states that his symptoms began Monday after eating a kale salad. Reports diarrhea (w/ hematochezia, no melena), cramping lower abd pain, and nausea. Denies vomiting until he was given abx, when he then reports x7 episodes of emesis which turned to hematemesis. Denies recent travel, known sick contacts, or recent abx use. Denies FMHx of CRC, polyps or IBD. Medications and Allergies Allergies Allergy/AdvReac Type Severity Reaction Status Date / Time azithromycin [From Zithromax] Allergy STOMACH Verified 10/17/21 13:47 AND TONGUE FALL ASLEEP/ ANXIETY morphine Allergy Unknown Verified 10/17/21 13:47 Home Medications Medication Instructions Recorded Confirmed Last Taken Type Pantoprazole [Protonix] 40 mg PO QDAY #30 tablet 12/29/19 10/18/21 Unknown Rx levoFLOXacin [Levaquin] 750 mg PO QDAY #3 tablet 12/29/19 10/18/21 Unknown Rx ondansetron HCL [Zofran] 4 mg PO Q6H PRN #20 tablet 12/29/19 10/18/21 Unknown Rx oxyCODONE /ACETAMINOPHEN [Percocet 1 tab PO BID PRN #10 tablet 12/29/19 10/18/21 Unknown Rx 5/325 mg] Doxycycline Hyclate [Doxycycline 100 mg PO Q12HR #28 tab 02/13/21 10/18/21 Unknown Rx Hyclate TAB] Nystatin Oint [Mycostatin Oint] 1 applicatio TP BID #1 tube 02/13/21 10/18/21 Unknown Rx Ondansetron [Zofran Odt] 4 mg PO Q8HR #10 tab.rapdis 10/18/21 Unknown Rx metroNIDAZOLE [Flagyl] 500 mg PO Q8HR #21 tablet 10/18/21 Unknown Rx oxyCODONE /ACETAMINOPHEN [Percocet 1 tab PO Q6HR PRN #14 tablet 10/18/21 Unknown Rx 5/325] Active Meds: Active Medications Acetaminophen (Acetaminophen 325 Mg Tab) 650 mg PO Q4H PRN PRN Reason: Pain MILD(1-3)/Fever >100.5/VICK Hydrocodone Bitart/Acetaminophen (Hydrocodone/Acetaminophen 5-325 Mg Tab) 2 each PO Q6H PRN PRN Reason: Pain, Moderate (4-6) Famotidine (Famotidine 20 Mg/2 Ml Inj) 20 mg IV BID PRATIK Last Admin: 10/18/21 09:32 Dose: 20 mg Heparin Sodium (Porcine) (Heparin 5,000 Unit/1 Ml Vial) 5,000 unit SUB-Q Q12HR PRATIK Last Admin: 10/18/21 09:33 Dose: 5,000 unit Hydromorphone HCl (Hydromorphone 0.5 Mg/0.5 Ml Inj) 1 mg IV Q3H PRN PRN Reason: Pain , Severe (7-10) Last Admin: 10/18/21 09:33 Dose: 1 mg Dextrose/Sodium Chloride (D5ns) 1,000 mls @ 125 mls/hr IV DIRECT PRATIK Last Admin: 10/18/21 04:27 Dose: 125 mls/hr Levofloxacin/Dextrose (Levaquin 750mg/150ml) 750 mg in 150 mls @ 100 mls/hr IV Q24H PRATIK; Protocol Last Admin: 10/17/21 19:49 Dose: Not Given Metronidazole (Flagyl 500 Mg/100 Ml) 500 mg in 100 mls @ 100 mls/hr IV Q8H PRATIK; Protocol Last Admin: 10/18/21 03:02 Dose: 100 mls/hr Methylprednisolone Sodium Succinate (Methylprednisolone Sod Succinate 125 Mg/2 Ml Inj) 60 mg IV Q8HR PRATIK Last Admin: 10/18/21 05:33 Dose: 60 mg Metoclopramide HCl (Metoclopramide 10 Mg/2 Ml Inj) 10 mg IV Q6H PRN PRN Reason: Nausea And Vomiting Ondansetron HCl (Ondansetron 4 Mg/2 Ml Inj) 4 mg IV Q3H PRN PRN Reason: Nausea And Vomiting Last Admin: 10/18/21 09:32 Dose: 4 mg Sodium Chloride (Sodium Chloride 0.9% 10 Ml Flush Syringe) 10 ml IV BID PRATIK Last Admin: 10/18/21 09:33 Dose: 10 ml Sodium Chloride (Sodium Chloride 0.9% 10 Ml Flush Syringe) 10 ml IV PRN PRN PRN Reason: LINE FLUSH Review of Systems - Review of Systems Gastrointestinal: abdominal pain, nausea, vomiting, diarrhea, hematemesis, hematochezia Exam - Constitutional Vital Signs: Temp Pulse Resp BP Pulse Ox 98.3 F 78 18 112/64 95 10/18/21 04:43 10/18/21 04:43 10/18/21 04:43 10/18/21 04:43 10/18/21 04:43 General appearance: no acute distress - Gastrointestinal General gastrointestinal: Present: soft, non-tender, non-distended - Labs CBC & Chem 7: 10/17/21 09:25 10/17/21 09:25 Lab Results: Laboratory Results - last 24 hr 10/17/21 10/17/21 10/17/21 09:25 09:27 Unknown Sodium 130 L Potassium 3.8 Chloride 95.3 L Carbon Dioxide 18 L Anion Gap 21 BUN 9 Creatinine 0.8 Glucose 106 H Calcium 9.3 Total Bilirubin 0.90 AST 14 ALT 20 Alkaline Phosphatase 97 Total Protein 7.5 Albumin 4.7 Lipase 23 Urine Color Yellow Urine Turbidity Clear Specific [place] (Man) 1.025 Ur Protein (Man) 2+ Ur Ketones (Man) 160 Ur Nitrite (Man) Negative Ur Reducing Substances Not Reportable Urine Bilirubin (Man) Negative Urine Ictotest Not Reportable Leukocyte Esterase (Man) Negative Urine WBC (Auto) < 1.0 Urine RBC (Auto) < 1.0 U Epithel Cells (Auto) < 1.0 Urine RBC (Manual) Negative Urine Mucus 3+ C. difficile Tox (PCR) Negative Assessment and Plan 1. Colitis - CT revealed moderate diffuse colitis - hemoglobin 15.2, continue to monitor - continue IV abx - continue IV PPI - continue steroids - continue IV fluids - once acute bout of colitis has resolved, would recommend outpatient colonoscopy given repeat bouts <MARIE GILES - Last Filed: 10/18/21 17:53> History of Present Illness - Reason for Consult colitis Requesting physician: LASHELL FERNANDEZ Medications and Allergies Active Meds: Active Medications Acetaminophen (Acetaminophen 325 Mg Tab) 650 mg PO Q4H PRN PRN Reason: Pain MILD(1-3)/Fever >100.5/VICK Hydrocodone Bitart/Acetaminophen (Hydrocodone/Acetaminophen 5-325 Mg Tab) 2 each PO Q6H PRN PRN Reason: Pain, Moderate (4-6) Famotidine (Famotidine 20 Mg/2 Ml Inj) 20 mg IV BID [facility] Last Admin: 10/18/21 09:32 Dose: 20 mg Heparin Sodium (Porcine) (Heparin 5,000 Unit/1 Ml Vial) 5,000 unit SUB-Q Q12HR PRATIK Last Admin: 10/18/21 09:33 Dose: 5,000 unit Hydromorphone HCl (Hydromorphone 0.5 Mg/0.5 Ml Inj) 1 mg IV Q3H PRN PRN Reason: Pain , Severe (7-10) Last Admin: 10/18/21 15:39 Dose: 1 mg Dextrose/Sodium Chloride (D5ns) 1,000 mls @ 125 mls/hr IV DIRECT PRATIK Last Admin: 10/18/21 15:45 Dose: 125 mls/hr Levofloxacin/Dextrose (Levaquin 750mg/150ml) 750 mg in 150 mls @ 100 mls/hr IV Q24H PRATIK; Protocol Last Admin: 10/17/21 19:49 Dose: Not Given Metronidazole (Flagyl 500 Mg/100 Ml) 500 mg in 100 mls @ 100 mls/hr IV Q8H PRATIK; Protocol Last Admin: 10/18/21 12:30 Dose: 100 mls/hr Methylprednisolone Sodium Succinate (Methylprednisolone Sod Succinate 125 Mg/2 Ml Inj) 60 mg IV Q8HR [facility] Last Admin: 10/18/21 14:15 Dose: 60 mg Metoclopramide HCl (Metoclopramide 10 Mg/2 Ml Inj) 10 mg IV Q6H PRN PRN Reason: Nausea And Vomiting Ondansetron HCl (Ondansetron 4 Mg/2 Ml Inj) 4 mg IV Q3H PRN PRN Reason: Nausea And Vomiting Last Admin: 10/18/21 09:32 Dose: 4 mg Sodium Chloride (Sodium Chloride 0.9% 10 Ml Flush Syringe) 10 ml IV BID [facility] Last Admin: 10/18/21 09:33 Dose: 10 ml Sodium Chloride (Sodium Chloride 0.9% 10 Ml Flush Syringe) 10 ml IV PRN PRN PRN Reason: LINE FLUSH Reviewed/updated patient's home and current medications Exam - Constitutional Vital Signs: Temp Pulse Resp BP Pulse Ox 97.5 F L 89 18 124/78 98 10/18/21 12:05 10/18/21 12:05 10/18/21 12:05 10/18/21 12:05 10/18/21 12:45 - Labs CBC & Chem 7: 10/18/21 12:01 10/18/21 12:01 Lab Results: Laboratory Results - last 24 hr 10/17/21 10/18/21 10/18/21 Unknown 12:01 12:01 WBC 6.6 RBC 4.97 Hgb 14.9 Hct 43.3 MCV 87 MCH 30 MCHC 34 RDW 14.4 Plt Count 211 Lymph % (Auto) 8.0 L [place] % (Auto) 2.3 Eos % (Auto) 0.0 Baso % (Auto) 0.0 Lymph # (Auto) 0.5 L [place] # (Auto) 0.2 Eos # (Auto) 0.0 Baso # (Auto) 0.0 Seg Neutrophils % 89.7 H Seg Neutrophils # 5.9 Sodium 139 D Potassium 4.8 D Chloride 103.8 Carbon Dioxide 23 Anion Gap 17 BUN 8 L Creatinine 0.9 Estimated GFR > 60 BUN/Creatinine Ratio 9 Glucose 147 H Calcium 9.5 Total Bilirubin 0.40 AST 12 ALT 18 Alkaline Phosphatase 86 Total Protein 7.5 Albumin 4.7 Albumin/Globulin Ratio 1.7 C. difficile Tox (PCR) Negative Assessment and Plan Patient seen and examined. I spent over 50% of time on management and care of the patient. Agree with note above. suspect acute infectious colitis, although this is a recurrent episode so IBD/UC is possible. would complete course of empiric abx, diet as tolerated, and will need colonoscopy as outpatient in 6 weeks.
[2021-10-18 12:27] LABS: Hematocrit 43.3 % (35.5-45.6); Hemoglobin 14.9 gm/dl (11.8-15.2); Lymphocytes # (Auto) 0.5 K/mm3 (1.2-5.4); Mean Corpuscular HGB Conc 34 % (32-34); Mean Corpuscular Volume 87 fl (84-94); Monocytes # (Auto) 0.2 K/mm3 (0.0-0.8); Monocytes % (Auto) 2.3 % (0.0-7.3); Platelet Count 211 K/mm3 (140-440); Red Blood Count 4.97 M/mm3 (3.65-5.03); Red Cell Distribution Width 14.4 % (13.2-15.2)
[2021-10-18 12:47] LABS: Alanine Aminotransferase 18 units/L (7-56); Albumin 4.7 g/dL (3.9-5); BUN/Creatinine Ratio 9; Blood Urea Nitrogen 8 mg/dL (9-20); Calcium 9.5 mg/dL (8.4-10.2); Hemolysis Index 1
--- NOTE | 2021-10-18 16:52 | Discharge Summary ---
Providers - Providers Date of Admission: 10/17/21 13:44 Attending physician: DERICK WEBB 10/17/21 13:26 Consult to Physician [CONS] Urgent Comment: Consulting Provider: MARIE GILSE Physician Instructions: Reason For Exam: colitis Primary care physician: ROBERTO MATOS Hospitalization Condition: Fair Exam - Constitutional Vitals: Temp Pulse Resp BP Pulse Ox 97.5 F L 89 18 124/78 98 10/18/21 12:05 10/18/21 12:05 10/18/21 12:05 10/18/21 12:05 10/18/21 12:45 Plan Follow up with: ROBERTO MATOS MD [Primary Care Provider] - 3-5 Days MARIE GILES MD [Staff Physician] - 7 Days
[2021-10-18 18:28] VITALS: BP 123/71
== END 2021-10-18 20:08 | disposition home or self-care (01) | DRG 392 ==
LOC: ED 08:50 → 3A 13:44 → OBSVTOIN 13:44 → 3A 18:40
PROVIDERS: ADMIT Internal Medicine; ATTEND Internal Medicine
DX: K52.9 Noninfective gastroenteritis and colitis, unspecified (principal); E87.1 Hypo-osmolality and hyponatremia; Z88.5 Allergy status to narcotic agent; Z88.8 Allergy status to other drugs, medicaments and biological substances
CPT/HCPCS: 36415; 74177; 80053; 81001; 82270; 83690; 85007; 85025; 87045; 87493; 96365; 96375; 99285; G0378; J3490; J7517; J1170; J1644; J1956; J2405; J2930; J3010; J7030; J7042; Q0169; Q9967